=== PATIENT | female | born 2000 | race Asian ===

== ENCOUNTER 2025-02-26 19:28 | Inpatient (IN) | payer MEDICAID, OTHER, SELFPAY ==
--- OUTSIDE RECORDS SUMMARY | 2025-02-24 19:11 | XMS_ITS | Encounter Summary ---
Author Organization [facility] Address [address] [place] [id number] Care Team Providers Care Calendering Machine Operator Name Role Phone None, Pcp Primary Care Provider Markie Díaz NP Primary Care Provider [phone] Reason for Visit * Reason Comments Suicide Attempt * Auth/Cert (Routine) Specialty Diagnoses / Procedures Referred By Yodit wright Referred To Contact Diagnoses Tylenol toxicity, accidental or unintentional, initial encounter Procedures Inpatient Noemi Miller MD [address] [place] [phone] Phone: tel: fax: Referral ID Status Reason Start Date Expiration Date Visits Re quested Visits Authorized [id number] 1 1 Encounter Details Date Type Department Care Team (Latest Contact Info) Description 02/24/2025 7:11 PM EDT - 02/26/2025 5:07 PM EDT Hospital Encounter [facility] Emergency Department [address] [place] [phone] John Anderson MD [address] [place] [phone] Antony Colmenares MD [address] [place] [phone] Noemi Miller MD [address] [place] [phone] Shell Wilson MD [address] [place] [phone] Intentional acetaminophen overdose, initial encounter ([facility]) (Primary Dx); Depression with suicidal ideation Discharge Disposition: Psychiatric Hospital Social History Tobacco Use Types Packs/Day Years Used Date Smoking Tobacco: Never Smokeless Tobacco: Never Tobacco Cessation:Counseling Given: Not Answered Humiliation, Afraid, Rape, and Kick questionnair e Answer Date Recorded Within the last year, have y ou been afraid of your partner or ex-partner? No 02/26/2025 Emotionally Abused Not on file 02/26/2025 Physically Abused Not on file 02/26/2025 Sexually Abused Not on file 02/26/2025 Overall Financial Resource Strain (CARDIA) Answe r Date Recorded How hard is it for you to pa y for the very basics like food, housing, medical care, and heating? Not hard at all 02/26/2025 Hunger Vital Sign Answer Date Recorded Within the past 12 months, y ou worried that your food would run out before you got the money to buy more. Never true 02/27/20 25 Ran Out of Food in the Last Year Not on file 02/26/2025 PRAPARE - Transportation Answer Date Re corded In the past 12 months, has l ack of transportation kept you from medical appointments or from getting medications? No 02/02 In the past 12 months, has l ack of transportation kept you from meetings, work, or from getting things needed for daily living? No 02/26/2025 Housing Stability Vital Sign Answer Papo e Recorded In the last 12 months, was t here a time when you were not able to pay the mortgage or rent on time? No 02/26/2025 Number of Times Moved in the Last Year Not on fi le 02/26/2025 At any time in the [facility] were you homeless or living in a prison (including now)? No 02/26/2025 [facility] Utilities Answer Date Recorded In the past 12 months has th e electric, gas, oil, or water company threatened to shut off services in your home? No 02/26/2025 Food Insecurity Answer Date Recorded Within the past 12 months, y ou worried that your food would run out before you got the money to buy more. Never true 02/27/20 25 Ran Out of Food in the Last Year Not on file 02/26/2025 Intimate Partner Violence Answer Date R ecorded Emotionally Abused Not on file 02/26/2025 Within the last year, have y ou been afraid of your partner or ex-partner? No 02/26/2025 Physically Abused Not on file 02/26/2025 Sexually Abused Not on file 02/26/2025 Housing Stability Answer Date Recorded Unstable Housing in the Last Year Not on file 02/26/2025 In the last 12 months, was t here a time when you were not able to pay the mortgage or rent on time? No 02/26/2025 Number of Places Lived in the Last Year Not on f ile 02/26/2025 AUDIT C Answer Date Recorded How often have you had a dri nk containing alcohol, in the past year? 1 02/26/2025 How many standard drinks con taining alcohol have you had on a typical day when you are drinking, in the past year? 2 0 02/26/2025 How often have you had six o r more drinks on one occasion, in the past year? 0 02/26/2025 Comments Unknown Sex and Gender Information Value Date Recorded Sex Assigned at Female 02/24/2025 7:14 PM EDT Legal Sex Female 1:58 AM EST Gender Identity Female 02/24/2025 7:14 PM EDT Sexual Orientation Not on file documented as of this encounter Last Filed Vital Signs Vital Sign Reading Time Taken Comments Blood Pressure 103/62 02/26/2025 4:00 PM EDT Pulse 69 02/26/2025 4:00 PM EDT Temperature 36.8 C (98.2 F) 02/26/2025 8:00 AM EDT Respiratory Rate 15 02/26/2025 4:00 PM EDT Oxygen Saturation 100% 02/26/2025 4:00 PM EDT Inhaled Oxygen Concentration - - Weight 40.8 kg (90 lb) 02/24/2025 7:59 PM EDT Height 144.8 cm (4' 9 ) 02/24/2025 7:59 PM EDT Body Mass Index 19.48 02/24/2025 7:59 PM EDT documented in this encounter Functional Status * Are you deaf or do you have serious difficulty hearing? Answer Date of Assessment Author No 02/24/2025 7:18 PM EDT Page Evans * Are you blind or do you have serious difficulty seeing, even when wearing glasses? Answer Date of Assessment Author No 02/24/2025 7:18 PM EDT Page Evans * Do you have serious difficulty walking or climbing stairs? Answer Date of Assessment Author No 02/24/2025 7:18 PM EDT Page Evans * Do you have difficulty dressing or bathing? Answer Date of Assessment Author No 02/24/2025 7:18 PM EDT Page Evans * Because of a physical, mental, or emotional condition, do you have difficulty doing errands alone such as visiting the doctor? Answer Date of Assessment Author No 02/24/2025 7:18 PM EDT Page Evans documented as of this encounter Mental Status * Because of a physical, mental, or emotional condition, do you have serious difficulty concentrating, remembering, or making decisions? Answer Entry Date Author No 02/24/2025 7:18 PM EDT Page Evans documented in this encounter Discharge Summaries * Shell Wilson MD - 02/26/2025 2:51 PM EDT Date Of Admission: 02/24/2025 Inpatient Status Admit Date: 02/25/25 Date Of Discharge: Primary Care Physician: Markie Gaines NP Most Recent Code Status: Full Code Discussed with/per: Patient Incidental Findings: None Surgeries and Procedures this Admission: None Pending Tests on Discharge: None Principal Hospital Problem/Problem List: Discharge Diagnoses Diagnosis POA Tylenol toxicity, accidental or unintentional, initial encounter Yes Resolved Diagnoses No resolved problems to display. Reason for Admission: Suicide attempt History Of Present Illness: Per admitting physician,Pt is a 24-year-old female w/ hx of depression,presenting with report of suicide attempt by taking Tylenol. EMS noted it was an older large bottleunclear how many. Patient initially notes she is unsure how many but then said maybe around 10 about half an hour prior to arrival she does have associated nausea vomiting. She denies any other meds.She notes because she started to have GI upset and she was still awake she called her for help. He immediately called EMS. She denies any other ingestion. Vitals are stable. Labs were sent. Initial Tylenol level was just over 100. We will send a 4-hour level based on her estimated time ofingestion of around 645 however given her nausea vomiting I am not comfortable that it was only 10 tablets 1 hour prior to arrival. I discussed with [facility], they do recommend with a course of NAC. Updated patient and family, we are going to send a 4-hour level. Patient remains awake and alert on reevaluation. She will need to come to the hospital for course of NAC, cycling enzymes, will need to be on hold with a behavioral health evaluation Hospital Course: Patient was treated with N-acetylcysteine for Tylenol overdose during her inpatient stay. Labs normalized. Cleared from medical standpoint to discharge to inpatient psych under section 12 for suicide attempt. Accepting Facility: [facility] Address: [address] [place] [address] Accepting MD: Dr Mynor Leone Most Recent Vital Signs at time of Discharge: Temp: 98.2 ??F (36.8 ??C) BP: 93/53 Heart Rate: 63 Resp: 16 SpO2: 100 % O2 Device: None (Room air) Height: 144.8 cm (4' 9 ) Actual Weight: (!) 40.8 kg (90 lb) BMI (Calculated): 19.5 Physical Exam: General: No distress. Awake and Alert. CV: Regular Rate and Rhythm. No Murmurs auscultated. Lungs: Respirations unlaboured. Clear to auscultation bilaterally. Abdomen: Soft, Non-distended, Non-tender, Positive Bowel Sounds. Extremities: No Lower Extremity Edema. Warm and Well Perfused. Allergies:Patient has no known allergies. Prescriptions Prior to Admission[1] This SmartLink can only be used in admission encounters. Discharge Orders: Discharge Disposition: Transfer to Acute Hospital : [facility] Discharge plan was discussed with patient who verbalized understanding. Educational materials were provided. 35 minutes were spent in coordinating the discharge planning. Advanced Care Planning: Contacts on File Name HCP Status Relationship HCP Last Review Date Ramin Agustin Spouse Labs: Results from last 7 days Lab Units 02/26/25 0640 02/25/25 1538 02/24/25 1950 WBC K/uL 6.05 4.91 6.60 HEMOGLOBIN g/dL 12.2 11.8* 11.7* HEMATOCRIT % 37.0 36.3 35.5 PLATELETS K/uL 224 227 243 Results from last 7 days Lab Units 02/26/25 1339 02/26/25 0640 02/25/25 1538 SODIUM mmol/L 141 140 141 POTASSIUM mmol/L 4.3 3.8 3.8 CHLORIDE mmol/L 106 105 106 CO2 mmol/L 27 24 25 BUN mg/dL 10 8 5* CREATININE mg/dL 0.60 0.60 0.50 CALCIUM mg/dL 9.0 9.0 8.7 TOTAL PROTEIN g/dL 6.5 6.5 6.7 BILIRUBIN TOTAL mg/dL 0.7 0.6 0.6 ALK PHOS U/L 28* 28* 29* ALT U/L 10 9 8 AST U/L 17 15 14 GLUCOSE mg/dL 86 89 98 Results from last 7 days Lab Units 02/26/25 0640 INR 1.0 Microbiology: No results found for this visit on 02/24/25. No results found for: CORONAVIRUS [1] (Not in a hospital admission) documented in this encounter Discharge Instructions * Discharge Instructions* Shell Wilson MD - 02/26/2025 3:12 PM EDT You were treated for acetaminophen overdose with N-acetylcysteine during your inpatient stay. You are being transferred to inpatient psychiatric hospital for further management. documented in this encounter Medications at Time of Discharge famotidine (PEPCID) 20 MG tablet Take 1 tablet (20 mg total) by mouth 2 times a day as needed for heartburn. 01/09/2025 documented as of this encounter Progress Notes * Ronn Escobar - 02/26/2025 2:27 PM EDT Behavioral Health Crisis Consult- Contact Note Patient: Arlin Gomez : 2000 Admit Date: 02/24/2025 Date of Consult: 02/26/2025 Time of Consult: 2:27 PM Narrative: Patient: Arlin Gomez Accepting Facility: [facility] Address: [address] [place], [place] Accepting MD: Dr Mynor Leone Arrival Time: 5pm Nurse to Nurse Report: they are calling for N2N Other Labs or Needs: N/A HCP/Guardian (if applicable): N/A Reason for Section 12: suicide attempt Information Given To: via secure chat documented in this encounter H&P Notes * Noemi Miller MD - 02/25/2025 4:04 AM EDT HOSPITAL MEDICINE ADMISSION NOTE: Patient: Arlin Gomez Admit Date: 02/24/2025 Primary Care Physician: Pcp MD Lisa CHIEF COMPLAINT: suicide attempt HPI: Pt is a 24-year-old female w/ hx of depression, presenting with report of suicide attempt by takingTylenol. EMS noted it was an older large bottle unclear how many. Patient initially notes she is unsure how many but then said maybe around 10 about half an hour prior to arrival she does have associated nausea vomiting. She denies any other meds. She notes because she started to have GI upset and she was still awake she called her for help. He immediately called EMS. She denies any otheringestion. Vitals are stable. Labs were sent. Initial Tylenol level was just over 100. We will send a 4-hour level based on her estimated time ofingestion of around 645 however given her nausea vomiting I am not comfortable that it was only 10 tablets 1 hour prior to arrival. I discussed with [facility] poison control, they do recommend with a course of NAC. Updated patient and family, we are going to send a 4-hour level. Patient remains awake and alert on reevaluation. She will need to come to the hospital for course of NAC, cycling enzymes, will need to be on hold with a behavioral health evaluation ROS: Pertinent positives and negatives as noted in the HPI. All other systems were reviewed and arenegative. PAST MEDICAL HISTORY: Past Medical History[1]depression PAST SURGICAL HISTORY: Past Surgical History[2] SOCIAL HISTORY: Social History[3] FAMILY HISTORY: Family History[4] HOME MEDICATIONS: Prior to Admission medications Medication Sig Start Date End Date Taking? Authorizing Provider ferrous sulfate 325 (65 FE) MG tablet 325 MG PO DAILY 01/05/23 Historical Conversion Provider, MD penaat.vits,morgan,wyd-qkzp-abebp (KPN) Tab TAB 01/05/23 Historical Conversion Provider, PHYSICAL EXAM: Temp: [98.1 ??F (36.7 ??C)] 98.1 ??F (36.7 ??C) Heart Rate: [62-82] 62 Resp: [16-18] 17 BP: (110-117)/(78-83) 110/78 SpO2: [100 %] 100 % Gen: Well appearing, well groomed, NAD HENT: NCAT, mucus membranes moist, no oral lesions Eyes: Clear conjunctive, no periorbital edema CV: RRR, no m/r/g Resp: Lungs CTAB, good air movement Abd: Soft, non-tender, non-distended : No suprapubic or CVA tenderness Skin: No visible rashes Ext: No LE edema or erythema Neuro: CN 2-12 intact. Strength 5/5 throughout. Full sensation throughout. Psych: Normal tone and affect @[id number]@ Current Shift 02/24 1900 - 02/25 0659 In: 700 [IV Piggyback:700] Out: - DATA: I have reviewed the relevant labs, radiology studies, tracings, medical records, and they are notable for: Results in past 24 hours: Recent Results (from the past 24 hours) Comprehensive Metabolic Panel Collection Time: 02/24/25 7:50 PM Result Value Ref Range Sodium 141 135 - 146 mmol/L Potassium 4.3 3.4 - 5.2 mmol/L Chloride 106 98 - 110 mmol/L Total CO2/Bicarbonate 25 24 - 32 mmol/L Anion Gap 11 2 - 15 mmol/L Anion Gap 10 2 - 15 mmol/L BUN 9 7 - 24 mg/dL Creatinine, Blood 0.60 0.50 - 1.10 mg/dL Glucose, Blood 101 (H) 50 - 100 mg/dL Calcium 9.2 8.5 - 10.5 mg/dL Total Protein 7.2 6.2 - 8.2 g/dL Albumin, Blood 4.4 3.4 - 5.2 g/dL AST (SGOT) 18 11 - 40 U/L ALT (SGPT) 10 5 - 35 U/L Alkaline Phosphatase 31 (L) 35 - 150 U/L Total Bilirubin 0.6 0.2 - 1.2 mg/dL Estimated GFR(CKD-EPI) 127 mL/min/BSA PT-INR Collection Time: 02/24/25 7:50 PM Result Value Ref Range Prothrombin Time 14.0 12.1 - 14.6 s INR 1.0 <5.0 HCG, serum, qualitative Collection Time: 02/24/25 7:50 PM Result Value Ref Range HCG, Qualitative, Serum Negative Negative Toxicology Screen, Plasma Collection Time: 02/24/25 7:50 PM Result Value Ref Range Acetaminophen Result,Blood 105 (HH) 10 - 30 ug/mL Alcohol <10 <10 mg/dL Salicylate Level, Blood <1 <30 mg/dL CBC and Differential Collection Time: 02/24/25 7:50 PM Result Value Ref Range WBC 6.60 3.90 - 10.80 K/uL RBC 4.27 3.93 - 5.29 M/uL Hemoglobin 11.7 (L) 12.0 - 15.2 g/dL Hematocrit 35.5 34.1 - 44.9 % MCH 27.4 25.6 - 32.2 pg MCHC 33.0 32.0 - 36.0 g/dL MCV 83 81 - 96 fL RDW 12.1 11.5 - 14.0 % Platelet Count 243 154 - 369 K/uL Neutrophil 54.2 % Lymphocyte 35.5 % Monocyte 6.7 % Eosinophil 2.6 % Basophil 0.8 % Immature Granulocyte (Paris, Myelo, Promyelocyte) 0.2 % Absolute Neutrophil Count 3.59 1.68 - 7.99 K/uL Absolute Immature Granulocyte (Paris, Myelo, Promyelocyte) 0.01 0.00 - 0.09 K/uL Absolute Lymphocyte Count 2.34 0.66 - 4.75 K/uL Absolute Monocyte Count 0.44 0.16 - 1.40 K/uL Absolute Eosinophil Count 0.17 0.00 - 0.60 K/uL Absolute Basophil Count 0.05 0.00 - 0.32 K/uL Drug Screen, Urine Collection Time: 02/24/25 7:51 PM Result Value Ref Range Amphetamines Screen, Urine Negative Negative Barbiturates Screen, Urine Negative Negative Benzodiazepine Screen, Urine Negative Negative Buprenorphine Screen, Urine Negative Negative Cannabinoids Screen, Urine Negative Negative Cocaine Metabolite Screen, Urine Negative Negative Fentanyl Screen, Urine Negative Negative Methadone Screen, Urine Negative Negative Opiates Screen, Urine Negative Negative Oxycodone Screen, Urine Negative Negative Propoxyphene Screen, Urine Negative Negative Tricyclics Screen Negative Negative Comment ECG 12 lead Collection Time: 02/24/25 8:01 PM Result Value Ref Range Ventricular Heart Rate 76 BPM OH Interval 140 ms QRSD Interval 85 ms QT Interval 370 ms QTC Interval 416 ms P Mcgill 67 degrees R Mcgill 74 degrees T Wave Mcgill 28 degrees Acetaminophen Level Collection Time: 02/24/25 11:15 PM Result Value Ref Range Acetaminophen Result,Blood 61 (HH) 10 - 30 ug/mL Imaging results in past 7 days: No results found. Microbiology results: No results found for this visit on 02/24/25. ASSESSMENT AND PLAN: Complexity Bundle #Suicide attempt with Tylenol Overdose Initial level was 105 at 19:50 and more recently down to 61 at 23:25 ER had discussed case with Poison Control who is recommending that she come in for NAC. She is currently on the 3rd bag that will run on until 5 pm. We will be checking LFTs and INR at 2 pm. If negative, plan on dcing the NAC. If positive will need to continue. Negative drug screen INR is 1, Hcg neg, LFTs are WNL,at this time Tbili is negative Will need to be behavioral hold Will obtain psych consult in am #Depression Per the , has been depressed all week and ultimately attempted to end her life. Per her PCP, she has Uncontrolled anxiety and depression. Has been on sertraline in the past. Patietn reported that she filled the med, but never took it again. #DVT prophylaxis with SCD Full code Noemi Peterson MD Section of Hospital Medicine [facility] [1] No past medical history on file. [2] No past surgical history on file. [3] Social History Socioeconomic History Marital status: [4] No family history on file. documented in this encounter Consult Notes * Mar Domínguez, [facility] - 02/26/2025 10:18 AM EDT Addendum: This clinician called [facility]. Clt was picked up [address], [address] . According to report, there was a suicide note. I spoke to Adina's , Radha Agustin [phone]. reported police took suicide note and did not give it to the . I called the [place] [employer]. Officer reported the note was written in Italian, detailing why shehad a suicide attempt. Officer reported police could not translate so note was considered evidence.I asked if he could fax it and he said it was not available. 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 Behavioral Health Crisis Consult - Initial Assessment Patient: Arlin Gomez : 2000 Admit Date: 02/24/2025 Date of Consult: 02/26/2025 Time of Consult: 10:18 AM Consult Requested by: Shell Wilson MD Reason for Consult: Reason for Consult: Information from hospitalist: CHIEF COMPLAINT: suicide attempt HPI: Pt is a 24-year-old female w/ hx of depression, presenting with report of suicide attempt by taking Tylenol. EMS noted it was an older large bottle unclear how many. Patient initially notes she is unsure how many but then said maybe around 10 about half an hour prior to arrival she does have associated nausea vomiting. She denies any other meds. She notes because she started to have GI upset and she was still awake she called her for help. He immediately called EMS. She denies any other ingestion. Vitals are stable. Labs were sent. Initial Tylenol level was just over 100. Chief Complaint Patient presents with Suicide Attempt History of Present Illness: Patient is a 24 y.o. female with past medical and psychiatric history as listed who presented to the hospital on 02/24/2025 for Suicide Attempt. Behavioral Health is consulted for SA. The patient reported she has been experiencing depression with suicidal thoughts since the ofher daughter. Medical History: has no past medical history on file. has no past surgical history on file. Psychiatric History: History of psychiatric illness?: No History of suicidal ideation?: Yes History of non-suicidal self injury?: No History of interpersonal aggression?: No History of past KEVIN?: No Treatment History?: Yes Outpatient Treatment:: Outpatient Psychopharm Current Providers?: No Collateral Contact: Yes Home Medications: Prescriptions Prior to Admission[1] Current Medications: Scheduled Medications[2] Current PRN: PRN Medications[3] Allergies: Patient has no known allergies. Substance Use History Alcohol: Substance and Sexual Activity Alcohol Use None In the past 12 months,have you had 5 or more drinks(men)/4 or more drinks (women) containing alcohol in one day?: No Tobacco: reports that she has never smoked. She has never used smokeless tobacco. E-Cigarettes/Vaping Questions Responses Passive Exposure No E-Cigarette/Vaping Substances Questions Responses Nicotine No THC No CBD No Flavoring No Other: has no history on file for drug use. Addiction/Substance Use Substances last used: Never used Prescription Medications: In the past 12 months,have you used any prescription medications just for the feeling, more than prescribed or that were no prescribed for you?: No Substances: In the past 12 months, have you used any drugs?: No Medical and Psychiatric Consequences: Psychosocial Consequences: Social History: ( See chart) Socioeconomic History Marital status: Number of children: 1 Years of education: 12 Social History Narrative Adina resides with her and 2 year old daughter, Snehal. Adina works at a [employer] with her . Her family is in [place] . She came to the [place] 2[place]5 years ago. She reported she has no family here with the exception of her . Employment Status: Data Unavailable Type of Residence: Private residence Children?: Yes Number of Children: 1 Children's Age(s): 2 years old Education: High school History: History [place] status: No Personal History: History of trauma/significant life events/MICHELE?: Yes (leaving my family in [place]) reports being sexually active. Family History: Family History[4] Family history of psychiatric illness?: No Family history of KEVIN?: No Family history of suicidal ideation, attempt or completed suicide?: No Physical Exam: Patient Vitals for the past 24 hrs: BP Temp Temp src Pulse Resp SpO2 02/26/25 0800 93/61 98.2 ??F (36.8 ??C) Oral 53 16 100 % 02/26/25 0355 101/64 -- -- (!) 50 16 100 % 02/26/25 0008 99/67 -- -- 55 17 100 % 02/25/252008 99/66 -- -- 65 16 100 % 02/25/25 1542 101/82 -- -- 70 18 100 % 02/25/25 1338 101/62 -- -- 64 17 100 % 02/25/25 1044 112/69 -- -- 71 18 100 % Mental Status Exam: MSEClt dressed in hospital attire, good eye contact, slow speech with paucity, mood was depressed with flat affect, thought process was not goal oriented, expressing hopelessness, Clt acknowledged Delfina reported SI since of her daughter, Denied AH and VH, poor sleep , some nights sleepless, some 2-3 hours a night, appetite is poor with a weight loss of 9 pounds over two month period, low motivation. Labs, Imaging & Other Studies: Laboratory: Recent lab results have been reviewed and are notable for ( See chart) Results for orders placed or performed during the hospital encounter of 02/24/25 (from the past 24 hours) Acetaminophen Level Result Value Ref Range Acetaminophen Result,Blood <5 (L) 10 - 30 ug/mL CBC Result Value Ref Range WBC 4.91 3.90 - 10.80 K/uL RBC 4.35 3.93 - 5.29 M/uL Hemoglobin 11.8 (L) 12.0 - 15.2 g/dL Hematocrit 36.3 34.1 - 44.9 % MCH 27.1 25.6 - 32.2 pg MCHC 32.5 32.0 - 36.0 g/dL MCV 83 81 - 96 fL RDW 11.8 11.5 - 14.0 % Platelet Count 227 154 - 369 K/uL Comprehensive Metabolic Panel Result Value Ref Range Sodium 141 135 - 146 mmol/L Potassium 3.8 3.4 - 5.2 mmol/L Chloride 106 98 - 110 mmol/L Total CO2/Bicarbonate 25 24 - 32 mmol/L Anion Gap 10 2 - 15 mmol/L Anion Gap 10 2 - 15 mmol/L BUN 5 (L) 7 - 24 mg/dL Creatinine, Blood 0.50 0.50 - 1.10 mg/dL Glucose, Blood 98 50 - 100 mg/dL Calcium 8.7 8.5 - 10.5 mg/dL Total Protein 6.7 6.2 - 8.2 g/dL Albumin, Blood 4.2 3.4 - 5.2 g/dL AST (SGOT) 14 11 - 40 U/L ALT (SGPT) 8 5 - 35 U/L Alkaline Phosphatase 29 (L) 35 - 150 U/L Total Bilirubin 0.6 0.2 - 1.2 mg/dL Estimated GFR(CKD-EPI) 133 mL/min/BSA ProTime-INR Result Value Ref Range Prothrombin Time 15.1 (H) 12.1 - 14.6 s INR 1.1 <5.0 Gold Top Result Value Ref Range Gold Top Tube Received Comprehensive Metabolic Panel Result Value Ref Range Sodium 140 135 - 146 mmol/L Potassium 3.8 3.4 - 5.2 mmol/L Chloride 105 98 - 110 mmol/L Total CO2/Bicarbonate 24 24 - 32 mmol/L Anion Gap 11 2 - 15 mmol/L Anion Gap 11 2 - 15 mmol/L BUN 8 7 - 24 mg/dL Creatinine, Blood 0.60 0.50 - 1.10 mg/dL Glucose, Blood 89 50 - 100 mg/dL Calcium 9.0 8.5 - 10.5 mg/dL Total Protein 6.5 6.2 - 8.2 g/dL Albumin, Blood 4.1 3.4 - 5.2 g/dL AST (SGOT) 15 11 - 40 U/L ALT (SGPT) 9 5 - 35 U/L Alkaline Phosphatase 28 (L) 35 - 150 U/L Total Bilirubin 0.6 0.2 - 1.2 mg/dL Estimated GFR(CKD-EPI) 127 mL/min/BSA Prothrombin Time - INR Result Value Ref Range Prothrombin Time 13.8 12.1 - 14.6 s INR 1.0 <5.0 CBC and Differential Result Value Ref Range WBC 6.05 3.90 - 10.80 K/uL RBC 4.47 3.93 - 5.29 M/uL Hemoglobin 12.2 12.0 - 15.2 g/dL Hematocrit 37.0 34.1 - 44.9 % MCH 27.3 25.6 - 32.2 pg MCHC 33.0 32.0 - 36.0 g/dL MCV 83 81 - 96 fL RDW 12.1 11.5 - 14.0 % Platelet Count 224 154 - 369 K/uL Neutrophil 48.9 % Lymphocyte 35.0 % Monocyte 6.1 % Eosinophil 9.1 % Basophil 0.7 % Immature Granulocyte (Paris, Myelo, Promyelocyte) 0.2 % Absolute Neutrophil Count 2.96 1.68 - 7.99 K/uL Absolute Immature Granulocyte (Paris, Myelo, Promyelocyte) 0.01 0.00 - 0.09 K/uL Absolute Lymphocyte Count 2.12 0.66 - 4.75 K/uL Absolute Monocyte Count 0.37 0.16 - 1.40 K/uL Absolute Eosinophil Count 0.55 0.00 - 0.60 K/uL Absolute Basophil Count 0.04 0.00 - 0.32 K/uL EKG: No studies were reviewed. C-SSRS Screener and SAFE-T: [place] Suicide Severity Rating Scale (C-SSRS) Screener 1) In the past month, have you wished you were or wished you could go to sleep and not wake up?: Yes If yes, describe (Past 1 Month): Ingested large unknown amount of tylenol 2) In the past month, have you actually had any thoughts of killing yourself?: Yes If yes, describe (Past 1 Month): Ingested large unknown amount of tylenol 3) Have you been thinking about how you might do this? (Past 1 Month): Yes If yes, describe (Past 1 Month): Ingested large unknown amount of tylenol 4) Have you had these thoughts and had some intention of acting on them or do you have some intention of acting on them? (Past 1 Month): Yes If yes, describe (Past 1 Month): Ingested large unknown amount of tylenol 5) Have you started to work out or worked out the details of how to kill yourself? Did you intend to carry out this plan? (Past 1 Month): Yes If yes, describe (Past 1 Month): Ingested large unknown amount of tylenol 6a.) Have you ever done anything, started to do anything, or prepared to do anything to end your life?: Yes If yes, describe: Ingested large unknown amount of tylenol 6b.) If 'Yes', was it within the past 3 months?: Yes C-SSRS Screener Risk Level: High History of Psychiatric Diagnosis:: Mood disorder Presenting Symptoms: Hopelessness or despair, Insomnia, Impulsivity Precipitants/ Stressors/ Interpersonal: Homelessness, Inadequate social supports, Social isolation Access to lethal methods: Ask specifically about presence or absence of a firearm in the home or ease of accessing: No Step 2: Identify Protective Factors (Protective factors may not counteract significant acute suicide risk factors) External Protective Factors: Responsibility to children, parents, pets Step 3: Specific questioning about Thoughts, Plans, and Suicidal Intent - (see Step 1 for Ideation Severity and Behavior) In the past 1 month, how many times have you had these thoughts?: Many times each day In the past 1 month, when you have the thoughts, how long do they last?: More than 8 hours/persistent or continuous In the past 1 month, could/can you stop thinking about killing yourself or wanting to if you want to?: Unable to control thoughts In the past 1 month, are there things - anyone or anything (e.g., family, scientologist, pain of ) - that stopped you from wanting to or acting on thoughts of suicide?: Deterrents definitely did not stop you In the past 1 month, what reasons did you have for thinking about wanting to or killing yourself? Was it to end the pain or stop the way you were feeling, or was it to get attention, revenge, or reaction from others? Or both?: Completely to end or stop the pain (you couldn't go on living with the pain you were feeling) Suicidal Ideation Intensity Total Score: 25 Management of Suicide Risk: Because the patient does not have active suicidal ideation, plan or intent, the patient will be recommended ILOC for recent SA via Tylenol. Assessment: Patient is a 24 y.o. female with past medical and psychiatric history as above now presents after SA via tylenol pills. This clinician met with Clt along with interrupter services ( Magy number [phone]). During evaluation Clt reported significant depression with suicidal thoughts since the of her two year old daughter ( It should be noted that since the symptoms have been longer than 12 months, Clt has Major Depressive D/O- severe) Clt reported she engaged in therapy /psychiatry with Dr.Chau Gaines through the [facility] in [place]. [place] reported she was prescribed medication but stopped it after a couple of days. Clt reported depression and SI have been persistent. 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 Adina reported no significant substance abuse ( 3-4 beers monthly, no other substances). Adina has no HX of [facility] level of care. She reported trauma associated with leaving her family in [place] but denied any HX of physical or sexual abuse. Adina has no legal HX. She reports poor sleep and some nights nosleep . Adina also reported a weight loss of 9 pounds over 2 months. During interview Adina reported , When my daughter was born I was overwhelmed and suicidal. I did see Markie Gaines and I was prescribed medication which helped but I stopped the medication after I few days because I thought I was getting better but depression returned. 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 She reported she misses her mother, father and brother but feels she can not visit for fear that she will not be allowed back in the country.Adina reported her is not in favor of Clt visiting her family. Adina reported yesterday she felt overwhelmed, having bad thoughts thinking she will never be able to see her family, and OD on Tylenol pills. Adina reported, After I took the pills, I was not but I was experiencing head ache and nausea so I told my . Adina was transported to ED by EMS. It should be noted Adina reported she has been struggling with SI x past two years. She did receive TX briefly and reported she stopped her medication after a few days. Based on this report this clinician will file a 51 A. Based on the above, adina would benefit from Inpatient level of care. Recommendations: [place] Intervention and Stabilization Services Requested: ILOC Disposition Recommendation: Inpatient Level of Care Patient meets criteria for opioid use disorder (OUD): No Behavioral Health Diagnosis: F32.2 Major Depressive Disorder Duration: Time Spent (min): 120 Discussed with Heavy Equipment Diesel Mechanic: No Discussed with Medical Team: Yes . Dr. Del Rosario Signed by: MIKAL Ziegler [1] (Not in a hospital admission) [2] famotidine, 20 mg, Oral, BID sodium chloride, 3 mL, Intravenous, Q12H KIM [3] Insert and Maintain Peripheral IV AND sodium chloride AND sodium chloride [4] No family history on file. documented in this encounter ED Notes * Linnette Clifford RN - 02/25/2025 5:36 PM EDT Patient has been pleasant and cooperative. at bedside most of day. Service Car Driver Ipad utilized for communication but does speak and understand Wallisian. She ambulates to bathroom w/steady gait. She does now have a diet order in place and enjoyed having dinner. INR was drawn * Linnette Clifford RN - 02/25/2025 4:37 PM EDT Poison control called and were updated w/LFT's and Tylenol level which they state meet their requirement to be cleared but they do need a new INR per protocol. I have placed the order and they will call back in about 90 minutes for result * Lianna Valderrama RN - 02/25/2025 3:00 AM EDT Pt is awake at this time and asking for something to eat. Pt was given agustina crackers and cup of ice water. * Lianna Valderrama RN - 02/24/2025 11:58 PM EDT RN assumed care of pt sleeping in bed with NAD noted and at bedside. Lab called to report pt's acetaminophen level is 61 at this time and will notify provider. Pt has second dose of Acetadote infusing. Pt remains under continuous observation for safety. Poison control called for pt's update on status. * Suellen Cristobal RN - 02/24/2025 7:44 PM EDT PT BIBA from home after ingesting unknown amount of tylenol in suicide attempt. Patient lithuanian speaking only. * Maria Dolores Hyatt RN - 02/24/2025 7:41 PM EDT Pt comes to ED after ingestion of unknown amount of tylenol. Per the pts pt stated to him that she took ten or more 500mg tabs of tylenol. Per the pt has been feeling depressed for the past week. Pt reports that she took 10 or more tylenol to this RN because she was feeling sad, this happened around 1830 per pt. Pt remains on continous pulse ox and cardiac monitoring. A+o4. Continuous monitor for safety maintained. 1:1 safety analyst at bedside. at bedside. Pt placed inpaper scrubs. All belongings away from pt. Kat Avitia-[id number] Pts earings, two bracelets, and necklace given to . * John Anderson MD - 02/24/2025 7:11 PM EDT Date of service: 02/24/2025 EMERGENCY DEPARTMENT ENCOUNTER [facility] EMERGENCY DEPARTMENT CHIEF COMPLAINT Suicide Attempt HPI Discussion with Independent Historian: EMS family Arlin Gomez is a 24 y.o. 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 Positive NV. There was a suicide note. Phone interp utilized PAST MEDICAL HISTORY Past Medical History[1] None SOCIAL HISTORY Social History[2] FAMILY HISTORY Family History[3] No relevant SURGICAL HISTORY Past Surgical History[4] None CURRENT MEDICATIONS Patient Medication List Previous Medications FERROUS SULFATE 325 (65 FE) MG TABLET PRENAT.VITS,MORGAN,VBF-[id number] (KPN) TAB ALLERGIES Allergies[5] No known drug allergies PHYSICAL EXAM Vitals: 02/24/25 2249 BP: 115/83 Pulse: 75 Resp: 16 Temp: SpO2: 100% Gnrl: NAD HEENT:AT/NC, EOMI, PERRLA, OPC NECK:supple RESP:CTA bilateral, no distress CV:RRR ABD:soft Nontender EXTR:normal pulses, no cords/calf tenderness NEURO:A&Ox3, CN2-12 intact, str/sense intact PSYCH: Tearful EKG Rhythm Strip: Normal sinus rhythm at 76 EKG: Normal sinus rhythm, normal QRS intervals, nonspecific ST-T changes QTc 400 QRS 85 Independently interpreted RADIOLOGY Independently interpreted LABS: Labs COMPREHENSIVE METABOLIC PANEL - Abnormal Result Value Ref Range Sodium 141 135 - 146 mmol/L Potassium 4.3 3.4 - 5.2 mmol/L Comment: Samples tested in serum may exhibit a higher potassium value than those tested on plasma. Our current range is based on plasma testing. Chloride 106 98 - 110 mmol/L Total CO2/Bicarbonate 25 24 - 32 mmol/L Anion Gap 11 2 - 15 mmol/L Anion Gap 10 2 - 15 mmol/L BUN 9 7 - 24 mg/dL Creatinine, Blood 0.60 0.50 - 1.10 mg/dL Glucose, Blood 101 (*) 50 - 100 mg/dL Calcium 9.2 8.5 - 10.5 mg/dL Total Protein 7.2 6.2 - 8.2 g/dL Albumin, Blood 4.4 3.4 - 5.2 g/dL AST (SGOT) 18 11 - 40 U/L ALT (SGPT) 10 5 - 35 U/L Alkaline Phosphatase 31 (*) 35 - 150 U/L Total Bilirubin 0.6 0.2 - 1.2 mg/dL Estimated GFR(CKD-EPI) 127 mL/min/BSA TOXICOLOGY SCREEN, BLOOD - Abnormal Acetaminophen Result,Blood 105 (*) 10 - 30 ug/mL Alcohol <10 <10 mg/dL Salicylate Level, Blood <1 <30 mg/dL CBC AND DIFFERENTIAL - Abnormal WBC 6.60 3.90 - 10.80 K/uL RBC 4.27 3.93 - 5.29 M/uL Hemoglobin 11.7 (*) 12.0 - 15.2 g/dL Hematocrit 35.5 34.1 - 44.9 % MCH 27.4 25.6 - 32.2 pg MCHC 33.0 32.0 - 36.0 g/dL MCV 83 81 - 96 fL RDW 12.1 11.5 - 14.0 % Platelet Count 243 154 - 369 K/uL Neutrophil 54.2 % Lymphocyte 35.5 % Monocyte 6.7 % Eosinophil 2.6 % Basophil 0.8 % Immature Granulocyte (Paris, Myelo, Promyelocyte) 0.2 % Absolute Neutrophil Count 3.59 1.68 - 7.99 K/uL Absolute Immature Granulocyte ([place], Myelo, Promyelocyte) 0.01 0.00 - 0.09 K/uL Absolute Lymphocyte Count 2.34 0.66 - 4.75 K/uL Absolute Monocyte Count 0.44 0.16 - 1.40 K/uL Absolute Eosinophil Count 0.17 0.00 - 0.60 K/uL Absolute Basophil Count 0.05 0.00 - 0.32 K/uL PROTIME-INR - Normal Prothrombin Time 14.0 12.1 - 14.6 s INR 1.0 <5.0 HCG, SERUM, QUALITATIVE - Normal HCG, Qualitative, Serum Negative Negative DRUG SCREEN, URINE Amphetamines Screen, Urine Negative Negative Barbiturates Screen, Urine Negative Negative Benzodiazepine Screen, Urine Negative Negative Buprenorphine Screen, Urine Negative Negative Cannabinoids Screen, Urine Negative Negative Cocaine Metabolite Screen, Urine Negative Negative Fentanyl Screen, Urine Negative Negative Methadone Screen, Urine Negative Negative Opiates Screen, Urine Negative Negative Oxycodone Screen, Urine Negative Negative Propoxyphene Screen, Urine Negative Negative Tricyclics Screen Negative Negative Comment Comment: The cut-off concentration for a positive result for each drug is listed below: Drug Cut-off value Amphetamines >1000 ng/mL Barbiturates >200 ng/mL Benzodiazepines >300 ng/mL Buprenorphine >5 ng/mL Cannabinoids >50 ng/mL Cocaine >300 ng/mL Fentanyl >5.0 ng/mL Opiates >300 ng/mL Methadone >300 ng/mL Oxycodone >100 ng/mL This is only a screening; positive results are not confirmed by a second method; The results must be used for medical purposes only. ACETAMINOPHEN LEVEL CBC AND DIFFERENTIAL Narrative: The following orders were created for panel order CBC and Differential. Procedure Abnormality Status --------- ------ CBC and Differential[[id number]] Abnormal Final result Please view results for these tests on the individual orders. ED COURSE & MEDICAL DECISION MAKING DIFFERENTIAL: Overdose, toxic overdose All nursing and triage notes reviewed. All labs ordered reviewed MDM: 24-year-old female, presenting with report of suicide attempt by taking Tylenol. EMS noted it was an older large bottle unclear how many. Patient initially notes she is unsure how many but then said maybe around 10 about half an hour prior to arrival she does have associated nausea vomiting. She denies any other meds. She notes because she started to have GI upset and she was still awake she called her for help. He immediately called EMS. She denies any other ingestion. Vitals are stable. Labs were sent. Initial Tylenol level was just over 100. We will send a 4-hour level based on her estimated time ofingestion of around 645 however given her nausea vomiting I am not comfortable that it was only 10 tablets 1 hour prior to arrival. I discussed with [facility] poison control, they do recommend with a course of NAC. Updated patient and family, we are going to send a 4-hour level. Patient remains awake and alert on reevaluation. She will need to come to the hospital for course of NAC, cycling enzymes, will need to be on hold with a behavioral health evaluation Consideration of Admission/Observation: Escalation of care: Admission given need for course of N-acetylcysteine Discussion with Other Healthcare Provider: Internist Medical Doctor Md: Patient's presentation and condition management discussed mass poison control Independent Interpretation of Studies: EKG: See interpretation included in this note. Rhythm Strip: My interpretation is: Normal sinus rhythm and intervals Review of External (Non-ED) Records: Medical record: No previous admission for SI Prescription medication considered but not given after discussion with patient/family: Prescriptionconsidered: Given nausea vomiting would not give charcoal Critical Care time (35 min): Critical care was necessary to treat or prevent imminent or life-threatening deterioration of the following conditions: . Tylenol overdose, SI attempt... Critical care was time spend by me on the following activities: blood draw for specimens, development of treatment plan with patient or surrogate, discussions with nurse, documenting the case, examination of patient, evaluation of patient's response to treatment, initial history and physical exam, medical decision making, obtaining history from patient or surrogate, interpretation of chest x-ray,ordering and performing treatments and interventions, ordering and review of laboratory studies, review of old charts, re-evaluation of patient's condition, review of labs and pulse oximetry DISPOSITION:admit Clinical Impression Intentional acetaminophen overdose, initial encounter ([facility]) (Primary) Depression with suicidal ideation John nAderson MD 02/24/252338 [1] No past medical history on file. [2] Social History Socioeconomic History Marital status: [3] No family history on file. [4] No past surgical history on file. [5] No Known Allergies John Anderson MD 02/24/252338 documented in this encounter Miscellaneous Notes * Significant Event - Shell Wilson MD - 02/25/2025 6:03 PM EDT Patient seen and examined the ER.Tylenol level trended down, INR WNL. LFTs WNL. Denies nausea vomiting or abdominal pain Resting comfortably Intentional overdose-Tylenol toxicity S/p N-acetylcysteine Trend liver enzymes Trend INR daily Tylenol level daily Discussed with poison control, given normal labs and asymptomatic status, Recommending stopping N-acetylcysteine after the last bag today. Will reach out to [facility] crisis team In a.m. documented in this encounter Plan of Treatment Pending Results Name Type Priority Associated Diagnoses Date /Time ECG 12 lead ECG STAT 02/24/2025 8: 01 PM EDT documented as of this encounter Procedures Procedure Name Priority Date/Time Associated Diagnosis Comments PROTIME-INR STAT 02/26/2025 4:03 PM EDT COMPREHENSIVE METABOLIC PANEL STAT 02/26/2025 1:39 PM EDT CBC AND DIFFERENTIAL Timed 02/26/2025 6:40 AM EDT PROTIME-INR Timed 02/26/2025 6:40 AM EDT CBC AND DIFFERENTIAL Timed 02/26/2025 6:40 AM EDT COMPREHENSIVE METABOLIC PANEL Timed 02/26/2025 6:40 AM EDT LABELS FOR EXTRA TUBES Routine 02/25/2025 4:48 PM EDT YELLOW TOP Routine 02/25/2025 4:48 PM EDT PROTIME-INR STAT 02/25/2025 4:48 PM EDT CBC Routine 02/25/2025 3:38 PM EDT COMPREHENSIVE METABOLIC PANEL Routine 02/25/2025 3:38 PM EDT ACETAMINOPHEN LEVEL STAT 02/25/2025 10:28 AM EDT PROTIME-INR STAT 02/25/2025 9:05 AM EDT ACETAMINOPHEN LEVEL STAT 02/24/2025 11:15 PM EDT ECG 12-LEAD STAT 02/24/2025 8:01 PM EDT Procedure Note - 02/24/2025 8:01 PM EDTThis note is in progress. SINUS RHYTHM NONSPECIFIC T-WAVE ABNORMALITY BORDERLINE ECG DRUG SCREEN, URINE STAT 02/24/2025 7: 51 PM EDT CBC AND DIFFERENTIAL STAT 02/24/2025 7:50 PM EDT TOXICOLOGY SCREEN, BLOOD STAT 02/24/2025 7:50 PM EDT PROTIME-INR STAT 02/24/2025 7:50 PM EDT CBC AND DIFFERENTIAL STAT 02/24/2025 7:50 PM EDT HCG, SERUM, QUALITATIVE STAT 02/24/2025 7:50 PM EDT COMPREHENSIVE METABOLIC PANEL STAT 02/24/2025 7:50 PM EDT documented in this encounter Results * ProTime-INR (02/26/2025 4:03 PM EDT) Prothrombin Time 13.8 12.1 - 14.6 s 02/26/2025 4:19 PM EDT [facility] INR 1.0 <5.0 02/26/2025 4:19 PM EDT [facility] Blood PERIPHERAL BLOOD SPECIMEN / Unknown Venipuncture / Unknown 02/26/2025 4:03 PM EDT 02/26/2025 4:05 PM EDT us Shell Wilson MD LAB BLOOD ORDERABLES Final Re sult [facility] [address] [place] [address], * (ABNORMAL) Comprehensive Metabolic Panel (02/26/2025 1:39 PM EDT) Sodium 141 135 - 146 mmol/L 02/26/2025 2:04 PM EDT [facility] Potassium 4.3 3.4 - 5.2 mmol/L 02/26/2025 2:04 PM T [facility] Comment:Samples tested in se rum may exhibit a higher potassium value than those tested on plasma. Our current range is based on plasma testing. Chloride 106 98 - 110 mmol/L 02/26/2025 2:04 PM EDT [facility] Total CO2/Bicarbonate 27 24 - 32 mmol/L 02/26/2025 2:04 PM EDT [facility] Anion Gap 8 2 - 15 mmol/L 02/26/2025 2:04 PM EDT [facility] Anion Gap 8 2 - 15 mmol/L 02/26/2025 2:04 PM [facility] BUN 10 7 - 24 mg/dL 02/26/2025 2:04 PM [facility] Creatinine, Blood 0.60 0.50 - 1.10 mg/dL 02/26/2025 2:04 PM [facility] Glucose, Blood 86 50 - 100 mg/dL 02/26/2025 2:04 PM [facility] Calcium 9.0 8.5 - 10.5 mg/dL 02/26/2025 2:04 PM [facility] Total Protein 6.5 6.2 - 8.2 g/dL 02/26/2025 2:04 PM [facility] Albumin, Blood 4.0 3.4 - 5.2 g/dL 02/26/2025 2:04 PM [facility] AST (SGOT) 17 11 - 40 U/L 02/26/2025 2:04 PM [facility] ALT (SGPT) 10 5 - 35 U/L 02/26/2025 2:04 PM [facility] Alkaline Phosphatase 28(L) 35 - 150 U/L 02/26/2025 2:04 PM [facility] Total Bilirubin 0.7 0.2 - 1.2 mg/dL 02/26/2025 2:04 PM [facility] Estimated GFR(CKD-EPI) 127 mL/min/BSA 02/26/2025 2:04 PM [facility] Blood PERIPHERAL BLOOD SPECIMEN / Unknown Venipuncture / Unknown 02/26/2025 1:39 PM EDT 02/26/2025 1:41 PM EDT us Noemi Miller MD LAB BLOOD ORDERABLES Final Result [facility] [address] [place] [address], [place] * CBC and Differential (02/26/2025 6:40 AM EDT) WBC 6.05 3.90 - 10.80 K/uL 02/26/2025 7:07 AM [facility] RBC 4.47 3.93 - 5.29 M/uL 02/26/2025 7:07 AM [facility] Hemoglobin 12.2 12.0 - 15.2 g/dL 02/26/2025 7:07 AM [facility] Hematocrit 37.0 34.1 - 44.9 % 02/26/2025 7:07 AM [facility] MCH 27.3 25.6 - 32.2 pg 02/26/2025 7:07 AM [facility] MCHC 33.0 32.0 - 36.0 g/dL 02/26/2025 7:07 AM [facility] MCV 83 81 - 96 fL 02/26/2025 7:07 AM [facility] RDW 12.1 11.5 - 14.0 % 02/26/2025 7:07 AM [facility] Platelet Count 224 154 - 369 K/uL 02/26/2025 7:07 AM [facility] Neutrophil 48.9 % 02/26/2025 7:07 AM [facility] Lymphocyte 35.0 % 02/26/2025 7:07 AM [facility] Monocyte 6.1 % 02/26/2025 7:07 AM [facility] Eosinophil 9.1 % 02/26/2025 7:07 AM [facility] Basophil 0.7 % 02/26/2025 7:07 AM [facility] Immature Granulocyte ([place], Myelo, Promyelocyte) 0.2 % 02/26/2025 7:07 AM [facility] Absolute Neutrophil Count 2.96 1.68 - 7.99 K/uL 02/26/2025 7:07 AM [facility] Absolute Immature Granulocyte ([place], Myelo, Promyelocyte) 0.01 0.00 - 0.09 K/uL 02/26/2025 7:07 AM [facility] Absolute Lymphocyte Count 2.12 0.66 - 4.75 K/uL 02/26/2025 7:07 AM [facility] Absolute Monocyte Count 0.37 0.16 - 1.40 K/uL 02/26/2025 7:07 AM EDT [facility] Absolute Eosinophil Count 0.55 0.00 - 0.60 K/uL 02/26/2025 7:07 AM EDT [facility] Absolute Basophil Count 0.04 0.00 - 0.32 K/uL 02/26/2025 7:07 AM EDT [facility] Blood PERIPHERAL BLOOD SPECIMEN / Unknown Venipuncture / Unknown 02/26/2025 6:40 AM EDT 02/26/2025 7:01 AM EDT Shell Wilson MD LAB BLOOD ORDERABLES Final Re sult Performing Organization Address [facility] de Phone Number [facility] [address] [place] [place] [phone], [place] * Prothrombin Time - INR (02/26/2025 6:40 AM EDT) Prothrombin Time 13.8 12.1 - 14.6 s 02/26/2025 7:15 AM EDT [facility] INR 1.0 <5.0 02/26/2025 7:15 AM T [facility] Blood PERIPHERAL BLOOD SPECIMEN / Unknown Venipuncture / Unknown 02/26/2025 6:40 AM EDT 02/26/2025 7:01 AM EDT Shell Wilson MD LAB BLOOD ORDERABLES Final Re sult Performing Organization Address [facility] de Phone Number [facility] [address] [place] [phone], [place] * (ABNORMAL) Comprehensive Metabolic Panel (02/26/2025 6:40 AM EDT) Sodium 140 135 - 146 mmol/L 02/26/2025 7:32 AM EDT [facility] Potassium 3.8 3.4 - 5.2 mmol/L 02/26/2025 7:32 AM EDT [facility] Comment:Samples tested in se rum may exhibit a higher potassium value than those tested on plasma. Our current range is based on plasma testing. Chloride 105 98 - 110 mmol/L 02/26/2025 7:32 AM [facility] Total CO2/Bicarbonate 24 24 - 32 mmol/L 02/26/2025 7:32 AM [facility] Anion Gap 11 2 - 15 mmol/L 02/26/2025 7:32 AM [facility] Anion Gap 11 2 - 15 mmol/L 02/26/2025 7:32 AM [facility] BUN 8 7 - 24 mg/dL 02/26/2025 7:32 AM [facility] Creatinine, Blood 0.60 0.50 - 1.10 mg/dL 02/26/2025 7:32 AM [facility] Glucose, Blood 89 50 - 100 mg/dL 02/26/2025 7:32 AM [facility] Calcium 9.0 8.5 - 10.5 mg/dL 02/26/2025 7:32 AM [facility] Total Protein 6.5 6.2 - 8.2 g/dL 02/26/2025 7:32 AM [facility] Albumin, Blood 4.1 3.4 - 5.2 g/dL 02/26/2025 7:32 AM [facility] AST (SGOT) 15 11 - 40 U/L 02/26/2025 7:32 AM [facility] ALT (SGPT) 9 5 - 35 U/L 02/26/2025 7:32 AM [facility] Alkaline Phosphatase 28(L) 35 - 150 U/L 02/26/2025 7:32 AM [facility] Total Bilirubin 0.6 0.2 - 1.2 mg/dL 02/26/2025 7:32 AM [facility] Estimated GFR(CKD-EPI) 127 mL/min/BSA 02/26/2025 7:32 AM [facility] Blood PERIPHERAL BLOOD SPECIMEN / Unknown Venipuncture / Unknown 02/26/2025 6:40 AM EDT 02/26/2025 7:01 AM EDT us Shell Wilson MD LAB BLOOD ORDERABLES Final Re sult Performing Organization Address [facility]/ZIP Co de Phone Number [facility] [address] [place] [address], [place] * Gold Top (02/25/2025 4:48 PM EDT) Gold Top Tube Received 02/25/2025 6:01 PM EDT [facility] Blood PERIPHERAL BLOOD SPECIMEN / Unknown Venipuncture / Unknown 02/25/2025 4:48 PM EDT 02/25/2025 4:52 PM EDT Shell Wilson MD LAB BLOOD ORDERABLES Final Re sult Performing Organization Address [facility] de Phone Number [facility] [address] [place] [phone], [place] * (ABNORMAL) ProTime-INR (02/25/2025 4:48 PM EDT) [facility] Prothrombin Time 15.1(H) 12.1 - 14.6 s 02/25/2025 5:08 PM EDT [facility] INR 1.1 <5.0 02/25/2025 5:08 PM EDT [facility] Blood PERIPHERAL BLOOD SPECIMEN / Unknown Venipuncture / Unknown 02/25/2025 4:48 PM EDT 02/25/2025 4:51 PM EDT Shell Wilson MD LAB BLOOD ORDERABLES Final Re sult Performing Organization Address [facility] Co de Phone Number [facility] [address] [place] [phone], [place] * (ABNORMAL) Comprehensive Metabolic Panel (02/25/2025 3:38 PM EDT) [facility] Sodium 141 135 - 146 mmol/L 02/25/2025 4:29 PM EDT [facility] Potassium 3.8 3.4 - 5.2 mmol/L 02/25/2025 4:29 PM EDT [facility] Comment:Samples tested in se rum may exhibit a higher potassium value than those tested on plasma. Our current range is based on plasma testing. Chloride 106 98 - 110 mmol/L 02/25/2025 4:29 PM [facility] Total CO2/Bicarbonate 25 24 - 32 mmol/L 02/25/2025 4:29 PM [facility] Anion Gap 10 2 - 15 mmol/L 02/25/2025 4:29 PM [facility] Anion Gap 10 2 - 15 mmol/L 02/25/2025 4:29 PM [facility] BUN 5(L) 7 - 24 mg/dL 02/25/2025 4:29 PM [facility] Creatinine, Blood 0.50 0.50 - 1.10 mg/dL 02/25/2025 4:29 PM [facility] Glucose, Blood 98 50 - 100 mg/dL 02/25/2025 4:29 PM [facility] Calcium 8.7 8.5 - 10.5 mg/dL 02/25/2025 4:29 PM [facility] Total Protein 6.7 6.2 - 8.2 g/dL 02/25/2025 4:29 PM [facility] Albumin, Blood 4.2 3.4 - 5.2 g/dL 02/25/2025 4:29 PM [facility] AST (SGOT) 14 11 - 40 U/L 02/25/2025 4:29 PM [facility] ALT (SGPT) 8 5 - 35 U/L 02/25/2025 4:29 PM [facility] Alkaline Phosphatase 29(L) 35 - 150 U/L 02/25/2025 4:29 PM [facility] Total Bilirubin 0.6 0.2 - 1.2 mg/dL 02/25/2025 4:29 PM [facility] Estimated GFR(CKD-EPI) 133 mL/min/BSA 02/25/2025 4:29 PM [facility] Blood PERIPHERAL BLOOD SPECIMEN / Unknown Venipuncture / Unknown 02/25/2025 3:38 PM EDT 02/25/2025 3:42 PM EDT us Noemi Miller MD LAB BLOOD ORDERABLES Final Result [facility] [address] [place] [phone], [place] * (ABNORMAL) CBC (02/25/2025 3:38 PM EDT) WBC 4.91 3.90 - 10.80 K/uL 02/25/2025 3:54 PM EDT [facility] RBC 4.35 3.93 - 5.29 M/uL 02/25/2025 3:54 PM EDT [facility] Hemoglobin 11.8(L) 12.0 - 15.2 g/dL 02/25/2025 3:54 PM EDT [facility] Hematocrit 36.3 34.1 - 44.9 % 02/25/2025 3:54 PM EDT [facility] MCH 27.1 25.6 - 32.2 pg 02/25/2025 3:[facility] MCHC 32.5 32.0 - 36.0 g/dL 02/25/2025 3:54 PM [facility] MCV 83 81 - 96 fL 02/25/2025 3:54 PM [facility] RDW 11.8 11.5 - 14.0 % 02/25/2025 3:54 PM [facility] Platelet Count 227 154 - 369 K/uL 02/25/2025 3:54 PM [facility] Blood PERIPHERAL BLOOD SPECIMEN / Unknown Venipuncture / Unknown 02/25/2025 3:38 PM EDT 02/25/2025 3:42 PM EDT us Noemi Miller MD LAB BLOOD ORDERABLES Final Result [facility] [address] [place] [phone], [place] * (ABNORMAL) Acetaminophen Level (02/25/2025 10:28 AM EDT) Acetaminophen Result,Blood <5(L) 10 - 30 ug/mL 02/25/2025 11:39 AM EDT [facility] Blood PERIPHERAL BLOOD SPECIMEN / Unknown Venipuncture / Unknown 02/25/2025 10:28 AM EDT 02/25/2025 10:52 AM EDT Shell Wilson MD LAB BLOOD ORDERABLES Final Re sult Performing Organization Address [facility] de Phone Number [facility] [address] [place] [phone], [place] * Prothrombin Time - INR (02/25/2025 9:05 AM EDT) Prothrombin Time 14.5 12.1 - 14.6 s 02/25/2025 9:37 AM EDT [facility] INR 1.1 <5.0 02/25/2025 9:37 AM EDT [facility] Blood PERIPHERAL BLOOD SPECIMEN / Unknown Venipuncture / Unknown 02/25/2025 9:05 AM EDT 02/25/2025 9:16 AM EDT Shell Wilson MD LAB BLOOD ORDERABLES Final Re sult Performing Organization Address [facility] Phone Number [facility] [address] [place] [phone], [place] * (ABNORMAL) Acetaminophen Level (02/24/2025 11:15 PM EDT) Acetaminophen Result,Blood 61(HH) 10 - 30 ug/mL 02/24/2025 11:58 PM EDT [facility] Blood PERIPHERAL BLOOD SPECIMEN / Unknown Venipuncture / Unknown 02/24/2025 11:15 PM EDT 02/24/2025 11:18 PM EDT John Anderson MD LAB BLOOD ORDERABLES Final Res ult Performing Organization Address [facility] de Phone Number [facility] [address] [place] [phone], [place] * Drug Screen, Urine (02/24/2025 7:51 PM EDT) Amphetamines Screen, Urine Negative Negative 02/24/2025 8:21 PM [facility] Barbiturates Screen, Urine Negative Negative 02/24/2025 8:21 PM [facility] Benzodiazepine Screen, Urine Negative Negative 02/24/2025 8:21 PM [facility] Buprenorphine Screen, Urine Negative Negative 02/24/2025 8:21 PM [facility] Cannabinoids Screen, Urine Negative Negative 02/24/2025 8:21 PM [facility] Cocaine Metabolite Screen, Urine Negative Negative 02/24/2025 8:21 PM [facility] Fentanyl Screen, Urine Negative Negative 02/24/2025 8:21 PM [facility] Methadone Screen, Urine Negative Negative 02/24/2025 8:21 PM [facility] Opiates Screen, Urine Negative Negative 02/24/2025 8:21 PM [facility] Oxycodone Screen, Urine Negative Negative 02/24/2025 8:21 PM [facility] Propoxyphene Screen, Urine Negative Negative 02/24/2025 8:21 PM [facility] Tricyclics Screen Negative Negative 025 8:21 PM [facility] Comment 02/24/2025 8:21 PM [facility] Comment: The cut-off concentration for a positive result for each drug is listed below: Drug Cut-off value Amphetamines >1000 ng/mL Barbiturates >200 ng/mL Benzodiazepines >300 ng/mL Buprenorphine >5 ng/mL Cannabinoids >50 ng/mL Cocaine >300 ng/mL Fentanyl >5.0 ng/mL Opiates >300 ng/mL Methadone >300 ng/mL Oxycodone >100 ng/mL This is only a screening; positive results are not confirmed by a second method; The results must be used for medical purposes only. Urine URINE SPECIMEN / Unknown Collection / Unknown 02/24/2025 7:51 PM EDT 02/24/2025 7:53 PM EDT John Anderson MD URINE ORDERABLES Final Result [facility] [address] [place] [address], [place] * (ABNORMAL) CBC and Differential (02/24/2025 7:50 PM EDT) WBC 6.60 3.90 - 10.80 K/uL 02/24/2025 7:57 PM [facility] RBC 4.27 3.93 - 5.29 M/uL 02/24/2025 7:57 PM [facility] Hemoglobin 11.7(L) 12.0 - 15.2 g/dL 02/24/2025 7:57 PM [facility] Hematocrit 35.5 34.1 - 44.9 % 02/24/2025 7:57 PM [facility] MCH 27.4 25.6 - 32.2 pg 02/24/2025 7:57 PM [facility] MCHC 33.0 32.0 - 36.0 g/dL 02/24/2025 7:57 PM [facility] MCV 83 81 - 96 fL 02/24/2025 7:57 PM [facility] RDW 12.1 11.5 - 14.0 % 02/24/2025 7:57 PM [facility] Platelet Count 243 154 - 369 K/uL 02/24/2025 7:57 PM [facility] Neutrophil 54.2 % 02/24/2025 7:57 PM [facility] Lymphocyte 35.5 % 02/24/2025 7:57 PM [facility] Monocyte 6.7 % 02/24/2025 7:57 PM [facility] Eosinophil 2.6 % 02/24/2025 7:57 PM [facility] Basophil 0.8 % 02/24/2025 7:57 PM [facility] Immature Granulocyte ([place], Myelo, Promyelocyte) 0.2 % 02/24/2025 7:57 PM [facility] Absolute Neutrophil Count 3.59 1.68 - 7.99 K/uL 02/24/2025 7:57 PM [facility] Absolute Immature Granulocyte ([place], Myelo, Promyelocyte) 0.01 0.00 - 0.09 K/uL 02/24/2025 7:57 PM [facility] Absolute Lymphocyte Count 2.34 0.66 - 4.75 K/uL 02/24/2025 7:57 PM [facility] Absolute Monocyte Count 0.44 0.16 - 1.40 K/uL 02/24/2025 7:57 PM [facility] Absolute Eosinophil Count 0.17 0.00 - 0.60 K/uL 02/24/2025 7:57 PM [facility] Absolute Basophil Count 0.05 0.00 - 0.32 K/uL 02/24/2025 7:57 PM [facility] Blood PERIPHERAL BLOOD SPECIMEN / Unknown Venipuncture / Unknown 02/24/2025 7:50 PM EDT 02/24/2025 7:53 PM EDT John Anderson MD LAB BLOOD ORDERABLES Final Res ult Performing Organization Address [facility]/ZIP Co de Phone Number [facility] [address] [place] [phone], [place] * (ABNORMAL) Toxicology Screen, Plasma (02/24/2025 7:50 PM EDT) Acetaminophen Result,Blood 105(HH) 10 - 30 ug/mL 02/24/2025 8:37 PM EDT [facility] Alcohol <10 <10 mg/dL 02/24/2025 8:37 PM EDT [facility] Salicylate Level, Blood <1 <30 mg/dL 02/24/2025 8:37 PM EDT [facility] Blood PERIPHERAL BLOOD SPECIMEN / Unknown Venipuncture / Unknown 02/24/2025 7:50 PM EDT 02/24/2025 7:53 PM EDT John Anderson MD LAB BLOOD ORDERABLES Final Res ult Performing Organization Address [facility]/ZIP Co de Phone Number [facility] [address] [place] [phone], [place] * HCG, serum, qualitative (02/24/2025 7:50 PM EDT) HCG, Qualitative, Serum Negative Negative 02/24/2025 8:10 PM EDT [facility] Blood PERIPHERAL BLOOD SPECIMEN / Unknown Venipuncture / Unknown 02/24/2025 7:50 PM EDT 02/24/2025 7:53 PM EDT John Anderson MD LAB BLOOD ORDERABLES Final Res ult Performing Organization Address [facility]/ZIP Co de Phone Number [facility] [address] [place] [address], [place] * PT-INR (02/24/2025 7:50 PM EDT) Pathologist [facility] Prothrombin Time 14.0 12.1 - 14.6 s 02/24/2025 8:07 PM EDT [facility] INR 1.0 <5.0 02/24/2025 8:07 PM EDT [facility] Blood PERIPHERAL BLOOD SPECIMEN / Unknown Venipuncture / Unknown 02/24/2025 7:50 PM EDT 02/24/2025 7:53 PM EDT John Anderson MD LAB BLOOD ORDERABLES Final Res ult Performing Organization Address [facility] Co de Phone Number [facility] [address] [place] [address], [place] * (ABNORMAL) Comprehensive Metabolic Panel (02/24/2025 7:50 PM EDT) Pathologist [facility] Sodium 141 135 - 146 mmol/L 02/24/2025 8:21 PM EDT [facility] Potassium 4.3 3.4 - 5.2 mmol/L 02/24/2025 8:21 PM EDT [facility] Comment:Samples tested in se rum may exhibit a higher potassium value than those tested on plasma. Our current range is based on plasma testing. Chloride 106 98 - 110 mmol/L 02/24/2025 8:21 PM EDT [facility] Total CO2/Bicarbonate 25 24 - 32 mmol/L 02/24/2025 8:21 PM [facility] Anion Gap 11 2 - 15 mmol/L 02/24/2025 8:21 PM [facility] Anion Gap 10 2 - 15 mmol/L 02/24/2025 8:21 PM [facility] BUN 9 7 - 24 mg/dL 02/24/2025 8:21 PM [facility] Creatinine, Blood 0.60 0.50 - 1.10 mg/dL 02/24/2025 8:21 PM [facility] Glucose, Blood 101(H) 50 - 100 mg/dL 02/24/2025 8:21 PM [facility] Calcium 9.2 8.5 - 10.5 mg/dL 02/24/2025 8:21 PM [facility] Total Protein 7.2 6.2 - 8.2 g/dL 02/24/2025 8:21 PM [facility] Albumin, Blood 4.4 3.4 - 5.2 g/dL 02/24/2025 8:21 PM [facility] AST (SGOT) 18 11 - 40 U/L 02/24/2025 8:21 PM [facility] ALT (SGPT) 10 5 - 35 U/L 02/24/2025 8:21 PM [facility] Alkaline Phosphatase 31(L) 35 - 150 U/L 02/24/2025 8:21 PM [facility] Total Bilirubin 0.6 0.2 - 1.2 mg/dL 02/24/2025 8:21 PM [facility] Estimated GFR(CKD-EPI) 127 mL/min/BSA 02/24/2025 8:21 PM [facility] Blood PERIPHERAL BLOOD SPECIMEN / Unknown Venipuncture / Unknown 02/24/2025 7:50 PM EDT 02/24/2025 7:53 PM EDT us John Anderson MD LAB BLOOD ORDERABLES Final Res ult [facility] [address] [place] [phone], documented in this encounter Visit Diagnoses Diagnosis Tylenol toxicity, accidental or unintentional, initial encounter- Primary Intentional acetaminophen overdose, initial encounter ([facility]) Depression with suicidal ideation documented in this encounter Admitting Diagnoses Diagnosis Tylenol toxicity, accidental or unintentional, initial encounter documented in this encounter Administered Medications Inactive Administered Medications - up to 3 most recent administrations Medication Order MAR Action Action Date Dose Rate Site acetylcysteine (ACETADOTE) 100 mg/kg = 4.08 g in dextrose 5% 1,000 mL infusion 4.08 g (100 mg/kg 40.8 kg), Intravenous, Once, On Tue02/25/25 at 0200, For 1 dose New Bag 02/25/2025 3:20 AM EDT 4.08 g 62.5 mL/hr acetylcysteine (ACETADOTE) 150 mg/kg = 6.12 g in dextrose 5% 200 mL infusion 6.12 g (150 mg/kg 40.8 kg), Intravenous, Once, On Tue02/24/25 at 2100, For 1 dose New Bag 02/24/2025 9:43 PM EDT 6.12 g 200 mL/hr acetylcysteine (ACETADOTE) 50 mg/kg = 2.04 g in dextrose 5% 500 mL infusion 2.04 g (50 mg/kg 40.8 kg), Intravenous, Once, On Tue02/24/25 at 2200, For 1 dose New Bag 02/24/2025 10:58 PM EDT 2.04 g 125 mL/hr famotidine (PEPCID) tablet 20 mg 20 mg, Oral, 2 times daily, First dose on Tue02/26/25 at 0900, Until Discontinued Given 02/26/2025 10:00 AM EDT 20 mg ibuprofen (MOTRIN) tablet 600 mg 600 mg, Oral, Every 8 hours PRN, Starting on Tue02/26/25 at 1429, Until Tue02/26/25 at 1908, mild (1-3) pain, moderate (4-6) pain Given 02/26/2025 2:57 PM EDT 600 mg peripheral line: sodium chloride (NS) 0.9% flush 3 mL, Intravenous, Every 12 hours scheduled, First dose on Tue02/25/25 at 2100, Until Discontinued Given 02/26/2025 10:03 AM EDT 3 mL peripheral line: sodium chloride 0.9 % (NS) flush 3 mL, Intravenous, Every 1 min PRN, Starting on Tue02/25/25 at 1531, Until Tue02/26/25 at 1908, line care documented in this encounter Active and Recently Administered Medications Times are shown in EDT. Scheduled Medication Order 02/24/2025 02/25/2025 02/26/2025 acetylcysteine (ACETADOTE) 100 mg/kg = 4.08 g in dextrose 5% 1,000 mL infusion (COMPLETED)(Linked Group 1) 4.08 g (100 mg/kg 40.8 kg), Intravenous, Once, On Tue02/25/25 at 0200, For 1 dose 0320 (New Bag - Provider: Lianna Valderrama RN)2215 (Stopped - Provider: Rahel Greenberg RN) acetylcysteine (ACETADOTE) 150 mg/kg = 6.12 g in dextrose 5% 200 mL infusion (COMPLETED)(Linked Group 1) 6.12 g (150 mg/kg 40.8 kg), Intravenous, Once, On Tue02/24/25 at 2100, For 1 dose 2143 (New Bag - Provider: MariaD olores Hyatt RN)2243 (Stopped - Provider: Maria Dolores Hyatt RN) acetylcysteine (ACETADOTE) 50 mg/kg = 2.04 g in dextrose 5% 500 mL infusion (COMPLETED)(Linked Group 1) 2.04 g (50 mg/kg 40.8 kg), Intravenous, Once, On Tue02/24/25 at 2200, For 1 dose 2258 (New Bag - Provider: Maria Dolores Hyatt RN) 0316 (Stopped - Provider: Lianna Valderrama RN) famotidine (PEPCID) tablet 20 mg 20 mg, Oral, 2 times daily, First dose on Tue02/26/25 at 0900, Until Discontinued 1000 (Given - Provider: Angi Gonzalez RN) peripheral line: sodium chloride (NS) 0.9% flush(Linked Group 2) 3 mL, Intravenous, Every 12 hours scheduled, First dose on Tue02/25/25 at 2100, Until Discontinued 2037 (Not Given - Provider: Rahel Greenberg RN - Reason: Other - Indicate below - Comment: IV infusing) 1003 (Given - Provider: Angi Gonzalez RN) PRN Medication Order 02/24/2025 02/25/2025 02/26/2025 ibuprofen (MOTRIN) tablet 600 mg 600 mg, Oral, Every 8 hours PRN, Starting on Tue02/26/25 at 1429, Until Tue02/26/25 at 1908, mild (1-3) pain, moderate (4-6) pain 1457 (Given - Provid er: Angi Gonzalez RN) peripheral line: sodium chloride 0.9 % (NS) flush(Linked Group 2) 3 mL, Intravenous, Every 1 min PRN, Starting on Tue02/25/25 at 1531, Until Tue02/26/25 at 1908, line care Linked Groups Order Group 1: acetylcysteine (ACETADOTE) 150 mg/kg = 6.12 g in dextrose 5% 200 mL infusion (COMPLETED)Jump to med 6.12 g (150 mg/kg 40.8 kg), Intravenous, Once, On Tue02/24/25 at 2100, For 1 dose Followed by acetylcysteine (ACETADOTE) 50 mg/kg = 2.04 g in dextrose 5% 500 mL infusion (COMPLETED)Jump to med 2.04 g (50 mg/kg 40.8 kg), Intravenous, Once, On Tue02/24/25 at 2200, For 1 dose Followed by acetylcysteine (ACETADOTE) 100 mg/kg = 4.08 g in dextrose 5% 1,000 mL infusion (COMPLETED)Jump to med 4.08 g (100 mg/kg 40.8 kg), Intravenous, Once, On Tue02/25/25 at 0200, For 1 dose Group 2: Insert and Maintain Peripheral IV (CANCELED) Routine, Continuous, Starting on Tue02/25/25 at 1532, Until Specified And peripheral line: sodium chloride (NS) 0.9% flushJump to med 3 mL, Intravenous, Every 12 hours scheduled, First dose on Tue02/25/25 at 2100, Until Discontinued And peripheral line: sodium chloride 0.9 % (NS) flushJump to med 3 mL, Intravenous, Every 1 min PRN, Starting on Tue02/25/25 at 1531, Until Tue02/26/25 at 1908, line care documented in this encounter Care Teams Calendering Machine Operator Relationship Specialty Start Date End Date None, Pcp, PCP - General 02/24/25 02/25/25 Markie Gaines NP [facility] [place] [address] PCP - General 02/26/25 documented as of this encounter
--- OUTSIDE RECORDS SUMMARY | 2025-02-26 19:37 | XMS_ITS | Encounter Summary ---
Author Organization [facility] r Address [address] [place] [address] Phone Care Team Providers Care Circus Trainer Name Role Phone Nancy Ann MD Primary Care Provider [phone] Markie Gaines RASPER MACHINE OPERATOR Primary Care Provider [phone] Josselyn Hutton RASPER MACHINE OPERATOR Unavailable [phone] Karla Verma RASPER MACHINE OPERATOR Unavailable [phone] Encounter Details Date Type Department Care Team (Late st Contact Info) Description 06/20/2023 Telephone [facility] [address] [place] [phone] Nancy Ann MD [address] [place], [place] [id number] Social History Tobacco Use Types Packs/Day Years Used Date Smoking Tobacco: Never Assessed Housing Answer Date Recorded What is your living situation today? I have a [facility] place to live 11/04/2022 Medications Answer Date Recorded Do you have trouble paying for prescriptions? No 11/04/2022 Utilities Answer Date Recorded Do you have trouble paying f or utilites (heat, electricity, internet, or phone bill)? No 11/04/2022 Caregiving [place] Answer Date Recorded Taking care of a child, elder, or disabled perso n No 11/04/2022 Employment Answer Date Recorded Looking for a job, changing jobs, or getting job training No 11/04/2022 Education Answer Date Recorded Getting more education or he lp with school (early child education under 5 years old, high school diploma or GED, college level education) No 11/04/2022 Food Answer Date Recorded Within the past 12 months, w ere you worried whether your food would run out before you got money to buy more? Never true 0 11/04/2022 Within the past 12 months, d id the food you bought just didn't last and you didn't have money to get more? Never true 10/2022 Transportation Answer Date Recorded Do you have trouble getting transportation to medical appointments? No 11/04/2022 Social Support Answer Date Recorded Getting more education or he lp with school (early child education under 5 years old, high school diploma or GED, college level education) No 11/04/2022 Comments No Sex and Gender Information Value Date Recorded Sex Assigned at Female 12/06/2022 10:54 AM EDT Legal Sex Female 4:55 PM EDT Gender Identity Female 11/16/2022 4:55 PM EDT Sexual Orientation Straight 11/16/2022 4: 55 PM EDT documented as of this encounter Miscellaneous Notes * Telephone Encounter - Sofia Martin - 06/20/2023 12:25 PM EST pt called that he still waiting for phone call appt. Please call pt. documented in this encounter Plan of Treatment Upcoming Encounters Date Type Department Care Team (Late st Contact Info) Description 03/12/2025 10:00 AM EDT Clinical Support [facility] [address] [place] [address] documented as of this encounter Visit Diagnoses Not on filedocumented in this encounter Care Teams Circus Trainer Relationship Specialty Start Date End Date Nancy Ann MD [address] [place] [phone] PCP - General 12/22/22 09/17/24 Markie Gaines NP [address] [place] [address] PCP - General Family Medicine 09/18/24 Josselyn Hutton NP [address] [place] [phone] PCP - Insurance 11/14/24 01/08/25 Karla Verma NP [address] [place] [phone] PCP - Insurance 01/09/25 documented as of this encounter
--- OUTSIDE RECORDS SUMMARY | 2025-02-26 19:37 | XMS_ITS | Encounter Summary ---
Author Organization [facility] r Address [address] [place] [address] Phone Care Team Providers Care Maintenance Supervisor Electrical Name Role Phone Nancy Ann MD Primary Care Provider [phone] Markie Gaines NP Primary Care Provider [phone] Josselyn Hutton SUPERVISOR GLYCERIN Unavailable [phone] Karla Verma SUPERVISOR GLYCERIN Unavailable [phone] Reason for Visit * Reason Comments Med Change Request Encounter Details Date Type Department Care Team (Late st Contact Info) Description 07/10/2023 Refill [facility] [address] [place] [address] Sharron Sparrow CNM [address] [place] [address] care following vaginal delivery; depression Social History Tobacco Use Types Packs/Day Years Used Date Smoking Tobacco: Never Assessed Housing Answer Date Recorded What is your living situation today? I have a [facility] to live 11/04/2022 Medications Answer Date Recorded Do you have trouble paying for prescriptions? No 11/04/2022 Utilities Answer Date Recorded Do you have trouble paying f or utilites (heat, electricity, internet, or phone bill)? No 11/04/2022 Caregiving [place] Answer Date Recorded Taking care of a [...] PM EDT documented as of this encounter Plan of Treatment Upcoming Encounters Date Type Department Care Team (Late st Contact Info) Description 03/12/2025 10:00 AM EDT Clinical Support [facility] [place] [address] documented as of this encounter Visit Diagnoses Diagnosis care following vaginal delivery depression Mental disorders of mother, complicating , childbirth, or the puerperium, unspecified as to episode of care documented in this encounter Care Teams Maintenance Supervisor Electrical Relationship Specialty Start Date End Date Nancy Ann MD [address] [place] [phone] PCP - General 12/22/22 09/17/24 Markie Gaines NP [address] [place] [phone] PCP - General Family Medicine 09/18/24 Josselyn Hutton NP [address] [place] [phone] PCP - Insurance 11/14/24 01/08/25 Karla Verma NP [address] [place] [address] PCP - Insurance 01/09/25 documented as of this encounter
--- OUTSIDE RECORDS SUMMARY | 2025-02-26 19:37 | XMS_ITS | Encounter Summary ---
Author Organization [facility] Address [address] [place] [id number] Care Team Providers Care Dish Room Worker Name Role Phone None, Pcp MD Primary Care Provider Unavailabl e Encounter Details Date Type Department Care Team (Latest Contact Info) Description 02/24/2025 Travel Social History Tobacco Use Types Packs/Day Years Used Date Smoking Tobacco: Never Assessed Comments Unknown Sex and Gender Information Value Date Recorded Sex Assigned at Female 02/24/2025 7:14 PM EDT Legal Sex Female 1:58 AM EST Gender Identity Female 02/24/2025 7:14 PM EDT Sexual Orientation Not on file documented as of this encounter Functional Status * Are you [...] EDT Page Evans documented in this encounter Plan of Treatment Not on file documented as of this encounter Visit Diagnoses Not on filedocumented in this encounter Care Teams Dish Room Worker Relationship Specialty Start Date End Date None, Pcp, PCP - General 02/24/25 02/25/25 documented as of this encounter
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
--- OUTSIDE RECORDS SUMMARY | 2025-02-26 19:37 | XMS_ITS | Encounter Summary ---
Author Organization [facility] r Address [address] [place] [address] Phone Care Team Providers Care Citrus Fruit Packer Name Role Phone Nancy Ann MD Primary Care Provider [phone] Markie Gaines FILM PRODUCER Primary Care Provider [phone] Josselyn Hutton FILM PRODUCER Unavailable [phone] Karla Verma FILM PRODUCER Unavailable [phone] Encounter Details Date Type Department Care Team (Late st Contact Info) Description 12/23/2022 Telephone [facility] [address] [place] [address] Radha Faustin CPhT [address] [place] [address] Social History Tobacco Use Types Packs/Day Years Used Date Smoking Tobacco: Never Assessed Housing Answer Date Recorded What is your living situation today? I have a [facility] place to live 11/04/2022 Medications Answer Date Recorded Do you have trouble paying for prescriptions? No 11/04/2022 Utilities Answer Date Recorded Do you have trouble paying f or utilites (heat, electricity, internet, or phone bill)? No 11/04/2022 Caregiving [place] Answer Date Recorded Taking care of a [...] GED, college level education) No 11/04/2022 Comments Yes Sex and Gender Information Value Date Recorded Sex Assigned at Female 12/06/2022 10:54 AM EDT Legal Sex Female 4:55 PM EDT Gender Identity Female 11/16/2022 4:55 PM EDT Sexual Orientation Straight 11/16/2022 4: 55 PM EDT documented as of this encounter Miscellaneous Notes * Telephone Encounter - Radha Faustin RPh - 12/23/2022 1:43 PM EDT Hello, The insurance plan is now requiring 90 day supply for prescription coverage for the following medications : 1. Ferosul oral tab 325 (65 mg ) mg 2. Vitamin C tab 500 mg 3. 4. Any questions, please call [phone] [facility] documented in this encounter Plan of Treatment Upcoming Encounters Date Type Department Care Team (Late st Contact Info) Description 03/12/2025 10:00 AM EDT Clinical Support [facility] [address] [place] [phone] documented as of this encounter Visit Diagnoses Not on filedocumented in this encounter Care Teams Citrus Fruit Packer Relationship Specialty Start Date End Date Nancy Ann MD [address] [place], [place] [phone] PCP - General 12/22/22 09/17/24 Markie Gaines NP [address] [place] [address] PCP - General Family Medicine 09/18/24 Josselyn Hutton NP [address] [place] [phone] PCP - Insurance 11/14/24 01/08/25 Karla Verma NP [address] [place] [phone] PCP - Insurance 01/09/25 documented as of this encounter
--- OUTSIDE RECORDS SUMMARY | 2025-02-26 19:37 | XMS_ITS | Clinical Summary ---
Author Organization [facility] Address [address] [place], [place] [address] Care Team Providers Care Bulk Plant Supervisor Name Role Phone Markie Gaines EDWARD Primary Care Provider [phone] Allergies No known active allergies Medications famotidine (PEPCID) 20 MG tablet Take 1 tablet (20 mg total) by mouth 2 times a day as needed for heartburn. 01/09/2025 Active Active Problems Problem Noted Date Diagnosed Date Tylenol toxicity, accidental or unintentional, initial encounter 02/25/2025 Encounters Date Type Department Care Team Description 02/24/2025 7:11 PM EDT - 02/26/2025 5:07 PM EDT Hospital Encounter [facility] Emergency Department [address] [place] [address] John Anderson MD Stonely, Wesley, MD Da Costa, Anabela C, MD Ravikumar, Rekha, MD Intentional acetaminophen overdose, initial encounter ([facility]) (Primary Dx); Depression with suicidal ideation Discharge Disposition: Psychiatric Hospital 02/24/2025 Travel from Last 3 Months Social History Tobacco Use Types Packs/Day Years [...] any time in the past 12 m [facility], were you homeless or living in a long term (including now)? No 02/26/2025 [facility] Utilities Answer Date Recorded In the past 12 months has th e electric, gas, oil, or water Tendr threatened to shut off services in your [...] PM EDT Sexual Orientation Not on file Last Filed Vital Signs Vital Sign Reading [...] Mass Index 19.48 02/24/2025 7:59 PM EDT Plan of Treatment Health Maintenance Due Date Last Done Comments Depression Screening 2002 Hepatitis C Screening 2016 COVID-19 Vaccine (2023-2 5 season) 2024 Influenza Vaccine (#1) 2025 , 11/04/2022 Cervical Cancer Screening 10/10/2027 Pap Smear 10/10/2027 10/09/2024 Blood Pressure 02/26/2029 02/26/2025 DTaP,Tdap,and Td Vaccines (2 - Td or Tdap) 12/06/2032 12/06/2022 Meningococcal B Vaccines Aged Out No longer eligible based on patient's age to complete this topic Meningococcal Vaccines Aged Out No lo nger eligible based on patient's age to complete this topic Pneumococcal Vaccine: Pediatrics (0 to 5 Years) and At-Risk Patients (6 to 64 Years) Aged Out No longer eligible b ased on patient's age to complete this topic Procedures Procedure Name Priority Date/Time Associated Diagnosis Comments PROTIME-INR STAT 02/26/2025 4:03 PM EDT COMPREHENSIVE METABOLIC PANEL STAT 02/26/2025 1:39 PM EDT CBC AND DIFFERENTIAL Timed 02/26/2025 6:40 AM EDT CBC AND DIFFERENTIAL Timed 02/26/2025 6:40 AM EDT PROTIME-INR Timed 02/26/2025 6:40 AM EDT COMPREHENSIVE METABOLIC PANEL Timed 02/26/2025 6:40 AM EDT LABELS FOR EXTRA TUBES Routine 02/25/2025 4:48 PM EDT YELLOW TOP Routine 02/25/2025 4:48 PM EDT PROTIME-INR STAT 02/25/2025 4:48 PM EDT COMPREHENSIVE METABOLIC PANEL Routine 02/25/2025 3:38 PM EDT CBC Routine 02/25/2025 3:38 PM EDT ACETAMINOPHEN LEVEL [...] AND DIFFERENTIAL STAT 02/24/2025 7:50 PM EDT CBC AND DIFFERENTIAL STAT 02/24/2025 7:50 PM EDT TOXICOLOGY SCREEN, BLOOD STAT 02/24/2025 7:50 PM EDT HCG, SERUM, QUALITATIVE STAT 02/24/2025 7:50 PM EDT PROTIME-INR STAT 02/24/2025 7:50 PM EDT COMPREHENSIVE METABOLIC PANEL STAT 02/24/2025 7:50 PM EDT from Last 3 Months Results * ProTime-INR (02/26/2025 4:03 PM EDT) Only the most recent of5 resultswithin the time period is included. Prothrombin Time 13.8 12.1 - 14.6 s 02/26/2025 4:19 PM EDT [facility] INR 1.0 <5.0 02/26/2025 4:19 PM EDT [facility] Blood PERIPHERAL BLOOD SPECIMEN / Unknown Venipuncture / Unknown 02/26/2025 4:03 PM EDT 02/26/2025 4:05 PM EDT us Shell Wilson MD LAB BLOOD ORDERABLES Final Re sult [facility] [address] [place] [phone], * (ABNORMAL) Comprehensive Metabolic Panel (02/26/2025 1:39 PM EDT) Only the most recent of4 resultswithin the time period is included. Sodium 141 135 - 146 mmol/L 02/26/2025 2:04 PM EDT [facility] Potassium 4.3 3.4 - 5.2 mmol/L 02/26/2025 2:04 PM EDT [facility] Comment:Samples tested in se rum may exhibit a higher potassium value than those tested on plasma. Our current range is based on plasma testing. Chloride 106 98 - 110 mmol/L 02/26/2025 2:04 PM [facility] Total CO2/Bicarbonate 27 24 - 32 mmol/L 02/26/2025 2:04 PM [facility] Anion Gap 8 2 - 15 mmol/L 02/26/2025 2:04 PM [facility] Anion Gap 8 2 - 15 mmol/L 02/26/2025 2:04 PM [facility] BUN 10 7 - 24 mg/dL 02/26/2025 2:04 PM [facility] Creatinine, Blood 0.60 0.50 - 1.10 mg/dL 02/26/2025 2:04 PM [facility] Glucose, Blood 86 50 - 100 mg/dL 02/26/2025 2:04 PM [facility] Calcium 9.0 8.5 - 10.5 mg/dL 02/26/2025 2:04 PM [facility] Total Protein 6.5 6.2 - 8.2 g/dL 02/26/2025 2:04 PM [facility] Albumin, Blood 4.0 3.4 - 5.2 g/dL 02/26/2025 2:04 PM [facility] AST (SGOT) 17 11 - 40 U/L 02/26/2025 2:04 PM [facility] ALT (SGPT) 10 5 - 35 U/L 02/26/2025 2:04 PM [facility] Alkaline Phosphatase 28(L) 35 - 150 U/L 02/26/2025 2:04 PM [facility] Total Bilirubin 0.7 0.2 - 1.2 mg/dL 02/26/2025 2:04 PM [facility] Estimated GFR(CKD-EPI) 127 mL/min/BSA 02/26/2025 2:04 PM [facility] Blood PERIPHERAL BLOOD SPECIMEN / Unknown Venipuncture / Unknown 02/26/2025 1:39 PM EDT 02/26/2025 1:41 PM EDT us Noemi Miller MD LAB BLOOD ORDERABLES Final Result [facility] [address] [place] [address], [place] * CBC and Differential (02/26/2025 6:40 AM EDT) Only the most recent of2 resultswithin the time period is included. WBC 6.05 3.90 - 10.80 K/uL 02/26/2025 7:07 AM [facility] RBC 4.47 3.93 - 5.29 M/uL 02/26/2025 7:07 AM [facility] Hemoglobin 12.2 12.0 - 15.2 g/dL 02/26/2025 7:07 AM [facility] Hematocrit 37.0 34.1 - 44.9 % 02/26/2025 7:07 AM [facility] MCH 27.3 25.6 - 32.2 pg 02/26/2025 7:07 AM [facility] MCHC 33.0 32.0 - 36.0 g/dL 02/26/2025 7:07 AM [facility] MCV 83 81 - 96 fL 02/26/2025 7:07 AM [facility] RDW 12.1 11.5 - 14.0 % 02/26/2025 7:07 AM [facility] Platelet Count 224 154 - 369 K/uL 02/26/2025 7:07 AM [facility] Neutrophil 48.9 % 02/26/2025 7:07 AM [facility] Lymphocyte 35.0 % 02/26/2025 7:07 AM [facility] Monocyte 6.1 % 02/26/2025 7:07 AM [facility] Eosinophil 9.1 % 02/26/2025 7:07 AM [facility] Basophil 0.7 % 02/26/2025 7:07 AM [facility] Immature Granulocyte ([place], Myelo, Promyelocyte) 0.2 % 02/26/2025 7:07 AM [facility] Absolute Neutrophil Count 2.96 1.68 - 7.99 K/uL 02/26/2025 7:07 AM [facility] Absolute Immature Granulocyte ([place], Myelo, Promyelocyte) 0.01 0.00 - 0.09 K/uL 02/26/2025 7:07 AM [facility] Absolute Lymphocyte Count 2.12 0.66 - 4.75 K/uL 02/26/2025 7:07 AM [facility] Absolute Monocyte Count 0.37 0.16 - 1.40 K/uL 02/26/2025 7:07 AM [facility] Absolute Eosinophil Count 0.55 0.00 - 0.60 K/uL 02/26/2025 7:07 AM [facility] Absolute Basophil Count 0.04 0.00 - 0.32 K/uL 02/26/2025 7:07 AM [facility] Blood PERIPHERAL BLOOD SPECIMEN / Unknown Venipuncture / Unknown 02/26/2025 6:40 AM EDT 02/26/2025 7:01 AM EDT us Shell Wilson MD LAB BLOOD ORDERABLES Final Re sult [facility] [address] [place] [id number], [place] * Gold Top (02/25/2025 4:48 PM EDT) Gold Top Tube Received 02/25/2025 6:01 PM EDT [facility] Blood PERIPHERAL BLOOD SPECIMEN / Unknown Venipuncture / Unknown 02/25/2025 4:48 PM EDT 02/25/2025 4:52 PM EDT Shell Wilson MD LAB BLOOD ORDERABLES Final Re sult Performing Organization Address City/[facility] Co de Phone Number [facility] [address] [place] [id number], [place] * (ABNORMAL) CBC (02/25/2025 3:38 PM EDT) WBC 4.91 3.90 - 10.80 K/uL 02/25/2025 3:54 PM [facility] RBC 4.35 3.93 - 5.29 M/uL 02/25/2025 3:54 PM [facility] Hemoglobin 11.8(L) 12.0 - 15.2 g/dL 02/25/2025 3:54 PM [facility] Hematocrit 36.3 34.1 - 44.9 % 02/25/2025 3:54 PM [facility] MCH 27.1 25.6 - 32.2 pg 02/25/2025 3:54 PM [facility] MCHC 32.5 32.0 - 36.0 g/dL 02/25/2025 3:54 PM [facility] MCV 83 81 - 96 fL 02/25/2025 3:54 PM [facility] RDW 11.8 11.5 - 14.0 % 02/25/2025 3:54 PM [facility] Platelet Count 227 154 - 369 K/uL 02/25/2025 3:54 PM [facility] Blood PERIPHERAL BLOOD SPECIMEN / Unknown Venipuncture / Unknown 02/25/2025 3:38 PM EDT 02/25/2025 3:42 PM EDT us Noemi Miller MD LAB BLOOD ORDERABLES Final Result [facility] [address] [place] [phone], * (ABNORMAL) Acetaminophen Level (02/25/2025 10:28 AM EDT) Only the most recent of2 resultswithin the time period is included. Acetaminophen Result,Blood <5(L) 10 - 30 ug/mL 02/25/2025 11:39 AM EDT [facility] Blood PERIPHERAL BLOOD SPECIMEN / Unknown Venipuncture / Unknown 02/25/2025 10:28 AM EDT 02/25/2025 10:52 AM EDT us Shell Wilson MD LAB BLOOD ORDERABLES Final Re sult [facility] [address] [place] [address], * Drug Screen, Urine (02/24/2025 7:51 PM EDT) Pathologist [facility] Amphetamines Screen, Urine Negative Negative 02/24/2025 8:21 PM [facility] Barbiturates Screen, Urine Negative Negative 02/24/2025 8:21 PM [facility] Benzodiazepine Screen, Urine Negative Negative 02/24/2025 8:21 PM [facility] Buprenorphine Screen, Urine Negative Negative 02/24/2025 8:21 PM [facility] Cannabinoids Screen, Urine Negative Negative 02/24/2025 8:21 PM [facility] Cocaine Metabolite Screen, Urine Negative Negative 02/24/2025 8:21 PM [facility] Fentanyl Screen, Urine Negative Negative 02/24/2025 8:21 PM [facility] Methadone Screen, Urine Negative Negative 02/24/2025 8:21 PM [facility] Opiates Screen, Urine Negative Negative 02/24/2025 8:21 PM [facility] Oxycodone Screen, Urine Negative Negative 02/24/2025 8:21 PM [facility] Propoxyphene Screen, Urine Negative Negative 02/24/2025 8:21 PM [facility] Tricyclics Screen Negative Negative 025 8:21 PM [facility] Comment 02/24/2025 8:21 PM [facility] Comment: The cut-off concentration for a [...] John Anderson MD URINE ORDERABLES Final Result Performing Organization Address [facility] [place]/[facility]/ZIP Co de Phone Number [facility] [address] [place] [phone], * (ABNORMAL) Toxicology Screen, Plasma (02/24/2025 7:50 PM EDT) Acetaminophen Result,Blood 105(HH) 10 - 30 ug/mL 02/24/2025 8:37 PM EDT [facility] Alcohol <10 <10 mg/dL 02/24/2025 8:37 PM EDT [facility] Salicylate Level, Blood <1 <30 mg/dL 02/24/2025 8:37 PM EDT [facility] Blood PERIPHERAL BLOOD SPECIMEN / Unknown Venipuncture / Unknown 02/24/2025 7:50 PM EDT 02/24/2025 7:53 PM EDT John Anderson MD LAB BLOOD ORDERABLES Final Res ult Performing Organization Address [facility] [place]/[facility]/ZIP Co de Phone Number [facility] [address] [place] [address], * HCG, serum, qualitative (02/24/2025 7:50 PM EDT) HCG, Qualitative, Serum Negative Negative 02/24/2025 8:10 PM EDT [facility] Blood PERIPHERAL BLOOD SPECIMEN / Unknown Venipuncture / Unknown 02/24/2025 7:50 PM EDT 02/24/2025 7:53 PM EDT John Anderson MD LAB BLOOD ORDERABLES Final Res ult Performing Organization Address City/[facility]/ZIP Co de Phone Number [facility] [address] [place] [address], from Last 3 Months [facility] [employer] [id number] [place] [address] SAFETY NET Advance Directives * Full Code (Latest Code Status on File) Date Activated Date Inactivated Comments 02/25/2025 3:31 PM Question Answer Comments Discussed with/per: Patient Care Teams Bulk Plant Supervisor Relationship Specialty Start Date End Date Markie Gaines NP [facility] [place] [address] PCP - General 02/26/25
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
--- OUTSIDE RECORDS SUMMARY | 2025-02-26 19:37 | XMS_ITS | Clinical Summary ---
Author Organization [facility] Address [address] [place] [address] Care Team Providers Care Braiding Machine Tender Name Role Phone Unavailable Primary Care Provider Unavailabl e Source Comments PLEASE NOTE, if this patient is a minor, it may be UNLAWFUL to discuss sensitive information that is contained in these records (such as FAMILY PLANNING, MENTAL HEALTH or SUBSTANCE ABUSE) with the minor patient's parent or other person without the patient's specific authorization.[facility] Allergies No known active allergies Medications prenat.vits,morgan, [id number] per tablet Take 1 Tablet by mouth once daily 30 Tablet 11 3 Active ferrous sulfate 325 mg (65 mg iron) tabletIndication s:Encounter for supervision of normal first in second trimester ([facility]),Iron deficiency anemia secondary to inadequate dietary iron intake Take 1 Tablet by mouth 2 (two) times daily with a meal 60 Tablet 3 Active ascorbic acid (VITAMIN C) 500 mg tabletIndication s:Encounter for supervision of normal first in second trimester ([facility]),Iron deficiency anemia secondary to inadequate dietary iron intake Take 1 Tablet by mouth 2 (two) times daily 60 Tablet 5 3 Active cetirizine (ZYRTEC) 10 mg tabletIndication s:Encounter for supervision of normal first in second trimester ([facility]),Season al allergies Take 1 Tablet by mouth once daily 30 Tablet 5 3 Active hydrocortisone 2.5 % creamIndications :Encounter for supervision of normal first in second trimester ([facility]),Season al allergies Apply topically 2 (two) times daily To rash on hands and leg for up to 2 weeks at a time 30 g 2 3 Active Active Problems Problem Noted Date Diagnosed Date Seasonal allergies 11/15/2022 Urinary tract infection in m other during second trimester of ([facility]) 11/15/2022 Overview (11/15/2022): Fecalis >100K -> Tx x 14 days, QD. Med not in pt's med list? SOFY @ [facility] [ ] Iron deficiency anemia 11/14/2022 Overview (11/14/2022): hct 30.1 / hgb 10 @ 24wks -> referral to [facility] Hematology for IV Fe++ sent Maternal varicella, non-immune ([facility]) 023 Overview (11/14/2022): Offer VZV PP [ ] Supervision of normal first ([facility]) 11/04/2022 Overview (11/14/2022): Estimated Date of Delivery: 02/24/23 by: LMP Provider: Sharron Sparrow CNM Clinic: [facility] Zika Screen: Social: Country of Origin:[place] FOB:Truon Vamsi DV screen: Denies Depression screen:Denies ETOH/Tobacco/Drug hx:Denies Education/literacy:12 Housing: Lives with her and mother in Law Work: Unemployed Flu Shot date:11/04/22 Pedi provider: Shi Immunizations Immunization Administration Dates Next Due Flu, Preservative Free 11/04/2022 Family History Medical History Relation Name Comments Heart attack Father High Cholesterol Father Hypertension Father Relation Name Status Comments Father Social History Tobacco Use Types Packs/Day Years Used Date Smoking Tobacco: Never Passive Smoke Exposure: Never Smokeless Tobacco: Never Alcohol Use Standard Drinks/Week Comments Not Currently 0 (1 standard drink = 0.6 oz pur e alcohol) Social Connections Answer Date Recorded Connectedness 0 03/13/2024 Financial Resource Strain Answer Date R ecorded Financial Resource Strain 0 2022 Stress Answer Date Recorded Stress 0 10/29/2022 Physical Activity Answer Date Recorded Physical Activity 0 10/29/2022 Food Insecurity Answer Date Recorded Food 0 11/04/2022 Transportation Needs Answer Date Record ed Transportation 0 11/04/2022 Housing Stability Answer Date Recorded Housing 0 11/04/2022 Safety and Environment Answer Date Jimmie rded Safety 0 10/29/2022 Utilities Answer Date Recorded Utilities 0 11/04/2022 Employment Answer Date Recorded Stress 0 11/04/2022 Comments No Sex and Gender Information Value Date Recorded Sex Assigned at Not on file Legal Sex Female 1:17 PM PDT Gender Identity Female 11/04/2022 2:41 PM PDT Sexual Orientation Straight 11/04/2022 2: 41 PM PDT Last Filed Vital Signs Vital Sign Reading Time Taken Comments Blood Pressure 98/57 11/15/2022 9:58 AM EDT Pulse 79 11/04/2022 5:37 PM EDT Temperature 36.6 C (97.8 F) 11/04/2022 5:37 PM EDT Respiratory Rate 20 10/29/2022 11:06 AM EDT Oxygen Saturation 99% 10/29/2022 11:06 AM EDT Inhaled Oxygen Concentration - - Weight 48.3 kg (106 lb 6.4 oz) 11/15/2022 9:58 A M EDT Height 152.4 cm (5') 11/04/2022 5:37 PM EDT Body Mass Index 20.78 11/04/2022 5:37 PM EDT Plan of Treatment Not on file Insurance [facility] [employer] Member Subscriber Plan / Payer (Ef fective 2022-Present) Name:Kat Gomez Relation to Subscriber:Self Name:Kat Gomez Payer ID:[id number] Group ID:[id number] Type:Medicaid Address: [facility] [address] [place] [address]
[2025-02-26 23:57] VITALS: BP 109/68; PULSE 82; RESP 16; TEMP 37.7; O2SAT 98
[2025-02-27 04:36] VITALS: BMI 19.3
--- NOTE | 2025-02-27 05:12 | PC.ADMIT ---
On 02/04/2025 she was brought via ambulance to [facility] following a suicide attempt by overdosing on 10-12 tablets of Tylenol 500mg each. This happened at approximately 18:30 on 02/24/2025. She was monitored in the ED at [facility] until her level came down and she was safe to transport. On 02/25/2025 at 20:00 pt. arrived to via stretcher from [facility] accompanied by . Pt.'s stated that pt. is Danish speaking only. She was shown to the examination room and full skin check was done. No broken areas of skin are noted. Vital signs taken and pt.weighed on standing scale. She was given a brief orientation to and shown to her room. Admission completed with the assistance of her . She apparently was feeling sad and lonely because their 2 year old baby girl is in [place] with pt's mother. They brought the baby there because Yen was feeling depressed at that time because she was missing her parents. Immediately upon ingesting the Tylenol she reported what she had done to her and admitted that she felt remorseful. Upon admission assessment it is clear that she remains remorseful. Her only concern is how soon she will be discharged. When she arrived to her legal status was 12B very shortly after her arrival Arleen Alaniz NP came to to review legal status with the patient and she signed a CV and was placed on 15 minute checks.
[2025-02-27 08:00] VITALS: BP 106/66; PULSE 83; RESP 12; TEMP 36.8; O2SAT 100
--- NOTE | 2025-02-27 11:51 | P.HPPS_ITS ---
[facility] Date of Service: 02/27/25 Chief Complaint: Major Depressive Disorder Sources of Information: patient interviewed and chart reviewed HPI Subjective Notes: Huffman Warning and Conditional Voluntary Healthcare Proxy: No Guardianship: No Medical Problems Affecting Mental Status: No Narrative: 24-year-old Tristanian speaking female with history of depression, presents to [facility] behavioral health from [facility], via ambulance, on 02/05/2025 for suicide attempt by overdosing on Tylenol 500 mg, 10-12 tablets. On interview with the patient, she reports multiple stressors, including missing her 2-year-old daughter who is currently living with the patient's mother in [place], missing her parents who reside in [place], and not having friends, family, or social support. She also reports associated headaches, sleep disturbance and sadness. Her symptoms have been ongoing for few months. However, she experienced racing thoughts a few days before she overdosed on the medications. Also, She recently had a verbal altercation with her , which increased her stress. She notes that she often feels lonely when her leaves her home to have fun with his friends. [place] 2 [place] ago. After she gave to her child, she found life challenging without social support. Her life became very stressful and she was very depressed. Therefore, a year ago, she sent her daughter to the patient's mother in [place]. She felt better after sending her child away. 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 For the past few months, she has been missing her daughter and parents. She thought about going to [place] to join her baby and parents before she [place] the [place] However, due to the current political status of the [facility], she is worried that she may be denied reentry, although she has a document as a legal permanent residence. She has not thought about her , a [facility] citizen, going to [place] to bring their daughter [place] because she thinks about spending time with her family before she brings her child back. She was on an antidepressant, antepartum, a year and a half ago for a few months. She stopped taking the medication after she fell better. She currently denies anxiety or depression. She denies SI/HI/AH/VH. She denies rupert or hypomania episodes. She denies nicotine, alcohol, or illicit drug use. Interpretation by a professional Tristanian courseware developer virtually. Patient seen at 11:50 on 02/27/2025. 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 Completed 12th grade in [place] Substance History: Denies nicotine, alcohol, illicit drug use Trauma History: Denies Diagnostics Vital Signs (24Hr): Vital Signs - 24 hr 02/26/25 23:57 02/27/25 08:00 Temperature 100 F 98.2 F Pulse Rate 82 83 Respiratory Rate 16 12 Blood Pressure 109/68 106/66 Pulse Oximetry 98 100 Oxygen Delivery Method Room Air Room Air BMI result Body Mass Index 19.3 Labs 02/28/25 08:27 Meds/Allergies Allergies Allergies Allergy/AdvReac Type Severity Reaction Status Date / Time No Known Allergies Allergy Verified 02/26/25 20:33 Mental Status Exam Mental Status Exam Narrative: Appearance: Casually dressed, adequate hygiene Behavior: Calm and cooperative throughout the interview. Eye contact is appropriate, and there are no signs of psychomotor agitation or retardation Speech: Normal volume and prosody Thought process: Logical and goal-directed Thought content: Future oriented no self-harming thoughts Mood: Euthymic Affect: Flat SI:denies HI:denies VH/AH:none Delusions: None Insight/judgment: Impaired insight and judgment Memory/cog: Alert, oriented x 4. grossly intact to conversational testing Assessment & Plan Assessment & Plan (1) Depression: Status: Acute Code(s): F32.A - Depression, unspecified (2) Suicide ideation: Status: Acute Code(s): R45.851 - Suicidal ideations Plan 24-year-old Tristanian speaking female with history of depression, presents to [facility] behavioral health from [facility], via ambulance, on 02/05/2025 for suicide attempt by overdosing on Tylenol 500 mg, 10-12 tablets. On interview with the patient, she reports multiple stressors, including missing her 2-year-old daughter who is currently living with the patient's mother in [place], missing her parents who reside in [place], and not having friends, family, or social support. She also reports associated headaches, sleep disturbance and sadness. Her symptoms have been ongoing for few months. However, she experienced racing thoughts a few days before she overdosed on the medications. Also, She recently had a verbal altercation with her , which increased her stress. She notes that she often feels lonely when her leaves her home to have fun with his friends. [place] 2 [place] ago. After she gave to her child, she found life challenging without social support. Her life became very stressful and she was very depressed. Therefore, a year ago, she sent her daughter to the patient's mother in [place]. She felt better after sending her child away. 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 For the past few months, she has been missing her daughter and parents. She thought about going to [place] to join her baby and parents before she brings the child back [place]. However, due to the current political status of the [facility], she is worried that she may be denied reentry, although she has a document as a legal permanent residence. She has not thought about her , a [facility] citizen, going to [place] to bring their daughter to [place] because she thinks about spending time with her family before she brings her child back. She was on an antidepressant, antepartum, a year and a half ago for a few months. She stopped taking the medication after she fell better. She currently denies anxiety or depression. She denies SI/HI/AH/VH. She denies rupert or hypomania episodes. She denies nicotine, alcohol, or illicit drug use. Formulation/Clinical reasoning: Depression: Likely chronic/episodic due to significant stressors. She was started on sertraline 50 mg daily. She notes that she slept better last night and feels comfortable. She feels alone in the room and wants to go home. She currently denies anxiety, depression, SI/HI/AH/VH. She misses her daughter and wants her to spend more time with her. Continue current treatment regimen. Encouraged to engage in groups. Verbalized understanding and agreed with the plan. According to nursing, patient's is visiting today. Plan Admit to M5. CV 15 minutes check. Diagnostics as needed. Collateral contact. Continue remainder of regime. Encouraged full milieu. Discharge planning. Patient educated on: diagnosis, medication risk/benefits and therapeutic strategies Reason for continued inpatient stay Substantial Risk for: harm to self and rapid decompensation Statement Statement: I have reviewed the history and physical and performed a pertinent examination on my patient. No changes have occurred unless specified. If the History and Physical was not performed prior to admission, the Hospitalist's service will be consulted for completing the admission physical. Time Spent With Patient Time: Total time managing care of this patient today ____ minutes.
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
[2025-02-27 20:00] VITALS: BP 117/58; PULSE 75; RESP 18; TEMP 37.1; O2SAT 100
[2025-02-28 08:00] VITALS: BP 105/58; PULSE 64; RESP 16; TEMP 36.9; O2SAT 98
[2025-02-28 08:59] LABS: Alanine Aminotransferase 16 U/L (0-31); Albumin Level 4.5 g/dL (3.5-5.0); Alkaline Phosphatase 30 U/L (39-117); Anion Gap 10 (12-20); Aspartate Amino Transferase 27 U/L (5-31); Blood Urea Nitrogen 15 mg/dL (9-16); Calcium 8.9 mg/dL (8.4-10.2); Carbon Dioxide 31 mmol/L (22-29); Chloride 103 mmol/L (96-108); Cholesterol 162 mg/dL (<200); Creatinine Clr Calc Pharmacy 69.2; Estimated Glomerular Filt Rate > 60; HDL Cholesterol 51 mg/dL (>40); Potassium 3.8 mmol/L (3.3-5.1); Sodium 140 mmol/L (135-145); Total Protein 7.0 g/dL (6.5-8.0); Triglycerides 69 mg/dL (<150)
[2025-02-28 09:14] LABS: Free T4 (Free Thyroxine) 1.12 ng/dL (0.71-1.85); Thyroid Stimulating Hormone 1.03 uIU/mL (0.32-4.0)
[2025-02-28 09:16] LABS: Hemoglobin A1C 103.8935 umol/L; Total Hemoglobin (HGBA1C) 3255.6674 umol/L
--- NOTE | 2025-02-28 09:36 | P.PNPSI_ITS ---
Subjective Subjective Date of Service: 02/28/25 Reason For Visit: Major Depressive Disorder Subjective Notes: Conditional Voluntary Healthcare Proxy: No Guardianship: No Medical Problems Affecting Mental Status: No Interim History: Patient states the her mood is better today. She feels more comfortable around her peers and less worried than yesterday. She does not like the food here. Her brought her food from home yesterday. She is happy that her visited yesterday and is expecting him yo visit today. Sertraline made her sleepy yesterday and this morning. She thinks her current sertraline dose is appropriate and does not want it to decrease. She currently denies anxiety or depression. She denies SI/HI/AH/VH. She is looking forward to be discharged. Interpretation by a professional Tamazight process coordinator via video. Medication Compliance: Yes Side effects from medications: Yes (Sleepiness on sertraline) Attending Groups: No Review of Systems Acute medical concerns: No Review of Systems Review of Systems Yes all other systems are reviewed and are negative Mental Status Exam Mental Status Exam Narrative: Appearance: Casually dressed, adequate hygiene Behavior: Calm and cooperative throughout the interview. Eye contact is appropriate, and there are no signs of psychomotor agitation or retardation Speech: Normal volume and prosody Thought process: Logical and goal-directed Thought content: Future oriented no self-harming thoughts Mood: Euthymic Affect: Constricted SI:denies HI:denies VH/AH:none Delusions: None Insight/judgment: Fair insight and judgment Memory/cog: Alert, oriented x 4. grossly intact to conversational testing Diagnostics Vital Signs (24Hr): Vital Signs - 24 hr 02/27/25 20:00 Temperature 98.8 F Pulse Rate 75 Respiratory Rate 18 Blood Pressure 117/58 L Pulse Oximetry 100 Oxygen Delivery Method Room Air BMI result Body Mass Index 19.3 Labs 02/28/25 08:27 Labs: Laboratory Results - last 48 hr 02/28/25 08:27 Sodium 140 Potassium 3.8 Chloride 103 Carbon Dioxide 31 H Anion Gap 10 L BUN 15 Creatinine 0.75 Estim Creat Clear Calc 69.2 Estimated GFR > 60 Random Glucose 87 Estimat Average Glucose 100 Hemoglobin A1c % 5.1 Calcium 8.9 Total Bilirubin 1.1 H AST 27 ALT 16 Alkaline Phosphatase 30 L Total Protein 7.0 Albumin 4.5 Triglycerides 69 Cholesterol 162 LDL Cholesterol, Calc 98 HDL Cholesterol 51 TSH 1.03 Free T4 1.12 Medications Medications Current Medications Acetaminophen (Acetaminophen 325 Mg Tablet) 650 mg PO Q6H PRN PRN Reason: Headache/Pain, Scale 1-10 Last Admin: 02/27/25 14:21 Dose: 650 mg Al Hydroxide/Mg Hydroxide (Magnesium Hydrox/Alum Hydrox 30 Ml Oral.Susp) 30 ml PO Q6H PRN PRN Reason: Heartburn/Nausea Hydroxyzine HCl (Hydroxyzine Hcl 25 Mg Tablet) 25 mg PO Q6H PRN PRN Reason: mild anxiety Magnesium Hydroxide (Milk Of Magnesia 30 Ml Oral.Susp) 30 ml PO DAILY PRN PRN Reason: Constipation Melatonin (Melatonin 3 Mg Tablet) 3 mg PO BEDTIME KIM Last Admin: 02/27/25 21:51 Dose: 3 mg Nicotine (Nicotine 21 Mg Patch.Td24) 21 mg TRANSDERMA DAILY PRN PRN Reason: nicotine craving Nicotine Polacrilex (Nicotine Polacrilex 2 Mg Gum) 2 mg BUCCAL Q2H PRN PRN Reason: Nicotine Cravings Sertraline HCl (Sertraline Hcl 50 Mg Tablet) 50 mg PO DAILY [facility] Last Admin: 02/28/25 08:31 Dose: Not Given Trazodone HCl (Trazodone Hcl 25 Mg Halftab) 25 mg PO BEDTIME MRX1 PRN PRN Reason: Insomnia Allergies Allergies Allergy/AdvReac Type Severity Reaction Status Date / Time No Known Allergies Allergy Verified 02/26/25 20:33 Assessment & Plan Assessment & Plan (1) Depression: Status: Acute Code(s): F32.A - Depression, unspecified (2) Suicide ideation: Status: Acute Code(s): R45.851 - Suicidal ideations Plan 24-year-old Tamazight speaking female with history of depression, presents to [facility] behavioral health from [facility], via ambulance, on 02/05/2025 for suicide attempt by overdosing on Tylenol 500 mg, 10-12 tablets. On interview with the patient, she reports multiple stressors, including missing her 2-year-old daughter who is currently living with the patient's mother in [place], missing her parents who reside in [place], and not having friends, family, or social support. She also reports associated headaches, sleep disturbance and sadness. Her symptoms have been ongoing for few months. However, she experienced racing thoughts a few days before she overdosed on the medications. Also, She recently had a verbal altercation with her , which increased her stress. She notes that she often feels lonely when her leaves her home to have fun with his friends. [place] After she gave to her child, she found life challenging without social support. Her life became very stressful and she was very depressed. Therefore, a year ago, she sent her daughter to the patient's mother in [place]. She felt better after sending her child away. 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 For the past few months, she has been missing her daughter and parents. She thought about going to [place] to join her baby and parents before she brings the child back to the [place]. However, due to the current political status of the [facility], she is worried that she may be denied reentry, although she has a document as a legal permanent residence. She has not thought about her , a [facility] citizen, going to [place] to bring their daughter to [place] because she thinks about spending time with her family before she brings her child back. She was on an antidepressant, antepartum, a year and a half ago for a few months. She stopped taking the medication after she fell better. She currently denies anxiety or depression. She denies SI/HI/AH/VH. She denies rupert or hypomania episodes. She denies nicotine, alcohol, or illicit drug use. Formulation/Clinical reasoning: Depression: Likely chronic/episodic due to significant stressors. She was started on sertraline 50 mg daily. She notes that she slept better last night and feels comfortable. She feels alone in the room and wants to go home. She currently denies anxiety, depression, SI/HI/AH/VH. She misses her daughter and wants her to spend more time with her. Continue current treatment regimen. Encouraged to engage in groups. Verbalized understanding and agreed with the plan. According to nursing, patient's is visiting today. 02/28: Continue current treatment regimen. Plan Admit to M5. CV 15 minutes check. Diagnostics as needed. Collateral contact. Continue remainder of regime. Encouraged full milieu. Discharge planning. Patient educated on: medication risk/benefits and therapeutic strategies Reason for continued inpatient stay Substantial Risk for: rapid decompensation Time Spent With Patient Time: Total time managing care of this patient today ____ minutes.
--- NOTE | 2025-02-28 09:53 | HO.PM.IMCN ---
History of Present Illness Data of Consult Service Date: 02/28/25 Primary Care Provider: Unknown Physician HPI Reason for consult: New admission H&P This is a 24-year-old Belarusian speaking female who was admitted to [facility] from [facility]. Patient reportedly attempted suicide with overdosing on 10-12 tablets of Tylenol. She was reportedly monitored at [facility] until her Tylenol level came down. Hospitalists were asked to see her for routine medical consultation. Consultation was completed with the assistance of a Belarusian hematology supervisor via video interpreting. Patient denies any chronic medical conditions with the exception of depression. She does not take any medication on a daily basis. She denies the use of tobacco or drugs and drinks alcohol only occasionally. She has no medical complaints at this time. Review of Systems Review of Systems: Yes all other systems are reviewed and are negative Constitutional: Constitutional: Denies fever(s) Cardiovascular: Cardiovascular: Denies chest pain Gastrointestinal: Gastrointestinal: Denies abdominal pain [facility] Social History Household Members: Spouse Housing: Apartment Do you presently have visiting nurse or other home services: No Patient Tobacco Use Status: Never used Tobacco Smoked in Last 30 Days: No Patient Interested in Nicotine Replacement: No Patient Given Instructions on How to Stop Smoking: No Second Hand Smoke Exposure: No Currently Displaying Signs/Symptoms of Drug Intoxication Withdrawal: No Have you been hit, kicked, punched, or otherwise hurt by someone within the past year? If so, by whom?: No Do you feel safe in your current relationship?: Yes Is there a partner from a previous relationship who is making you feel unsafe now?: No Are you made to feel afraid or neglected: No Spiritual Healthcare Practices: Budhist Advance Directives: No Advance Directives Information Provided: No Do you have thoughts of harming others: None Do you have a plan to hurt others: No Plan How much weight loss: 2-13 pounds Nutrition Risks: No Nutritional Risk Patient : No : No Poor oral hygiene: No service: No Sexual orientation: Straight/Heterosexual Meds Allergies Allergy/AdvReac Type Severity Reaction Status Date / Time No Known Allergies Allergy Verified 02/26/25 20:33 Active Medications: Current Medications Acetaminophen (Acetaminophen 325 Mg Tablet) 650 mg PO Q6H PRN PRN Reason: Headache/Pain, Scale 1-10 Last Admin: 02/27/25 14:21 Dose: 650 mg Al Hydroxide/Mg Hydroxide (Magnesium Hydrox/Alum Hydrox 30 Ml Oral.Susp) 30 ml PO Q6H PRN PRN Reason: Heartburn/Nausea Hydroxyzine HCl (Hydroxyzine Hcl 25 Mg Tablet) 25 mg PO Q6H PRN PRN Reason: mild anxiety Magnesium Hydroxide (Milk Of Magnesia 30 Ml Oral.Susp) 30 ml PO DAILY PRN PRN Reason: Constipation Melatonin (Melatonin 3 Mg Tablet) 3 mg PO BEDTIME [facility] Last Admin: 02/27/25 21:51 Dose: 3 mg Nicotine (Nicotine 21 Mg Patch.Td24) 21 mg TRANSDERMA DAILY PRN PRN Reason: nicotine craving Nicotine Polacrilex (Nicotine Polacrilex 2 Mg Gum) 2 mg BUCCAL Q2H PRN PRN Reason: Nicotine Cravings Sertraline HCl (Sertraline Hcl 50 Mg Tablet) 50 mg PO DAILY [facility] Last Admin: 02/28/25 08:31 Dose: Not Given Trazodone HCl (Trazodone Hcl 25 Mg Halftab) 25 mg PO BEDTIME MRX1 PRN PRN Reason: Insomnia Physical Exam Vital Signs and Narrative: Vital Signs: Last Vital Signs Temp 98.8 F 02/27/25 20:00 Pulse 75 02/27/25 20:00 Resp 18 02/27/25 20:00 BP 117/58 L 02/27/25 20:00 Pulse Ox 100 02/27/25 20:00 O2 Del Method Room Air 02/27/25 20:00 BMI result Body Mass Index 19.3 Const: Nutritional Appearance: well nourished Orientation/consciousness: patient oriented x3 Resp: Effort & Inspection: normal respiratory effort and no respiratory distress Auscultation: clear to auscultation bilaterally Cardio: Rate: regular rate Neuro: General: patient oriented x3 Cranial nerves: Yes CN's II-XII intact bilaterally Results Labs 02/28/25 08:27 Labs: Laboratory Results - last 24 hr 02/28/25 08:27 Anion Gap 10 L Estim Creat Clear Calc 69.2 Estimated GFR > 60 Random Glucose 87 Estimat Average Glucose 100 Hemoglobin A1c % 5.1 Calcium 8.9 Total Bilirubin 1.1 H AST 27 ALT 16 Alkaline Phosphatase 30 L Total Protein 7.0 Albumin 4.5 Triglycerides 69 Cholesterol 162 LDL Cholesterol, Calc 98 HDL Cholesterol 51 TSH 1.03 Free T4 1.12 Assessment and Plan (1) General medical exam: Status: Acute Plan This is a 24-year-old Belarusian speaking female with no known past medical history was transferred from [facility] after attempted overdose. No chronic medical conditions. No acute medical issues at this time. Continue care per unit protocol for depression with suicide attempt. reported Tylenol overdose, tylenol level reportedly returned to normal prior to transfer to [facility]. LFTs wnl. Thank you for allowing us to participate in the care of this patient, please feel free to call us if any acute medical issues arise.
[2025-02-28 20:13] VITALS: BP 106/61; PULSE 74; RESP 16; TEMP 36.8; O2SAT 100
[2025-03-01 08:00] VITALS: BP 111/56; PULSE 59; TEMP 36.6; O2SAT 99
--- NOTE | 2025-03-01 09:47 | HO.PSYCHPN ---
Subjective Subjective Date of Service: 03/01/25 Reason For Visit: Major Depressive Disorder Subjective Notes: Conditional Voluntary and 3 Day Healthcare Proxy: No Guardianship: No Medical Problems Affecting Mental Status: No Interim History: Sertraline changed to HS. Pt asks to DC. reports he will take time off from work to care for her. reports they will travel to [facility] hopefully in April. Pt reports feeling worse in the hospital. Medication Compliance: Yes Side effects from medications: No Attending Groups: No Review of Systems Acute medical concerns: No Review of Systems Review of Systems Denies Mental Status Exam Mental Status Exam Patient Appearance: Appropriate Patient Orientation: Person, Place, Time and Situation Level of Consciousness: Alert Patient Behavior: Guarded, Talkative and Crying Mood Description: Depressed Affect Description: Flat Patient Cognition Impaired: No Ability to Follow Directions: Good Speech Pattern: Spontaneous Speech Memory Description: Intact Hallucinations: None Delusions: Not Present Thought Process: Rumination Thought Content: positive for Circumstantial and positive for Perseveration Depressive Symptoms: Thoughts of /Suicide (denies) Judgement: Fair Diagnostics Vital Signs (24Hr): Vital Signs - 24 hr 02/28/25 20:13 03/01/25 08:00 Temperature 98.3 F 97.8 F Pulse Rate 74 59 Respiratory Rate 16 Blood Pressure 106/61 111/56 L Pulse Oximetry 100 99 Oxygen Delivery Method Room Air Room Air BMI result Body Mass Index 19.3 Labs 02/28/25 08:27 Labs: Laboratory Results - last 48 hr 02/28/25 08:27 Sodium 140 Potassium 3.8 Chloride 103 Carbon Dioxide 31 H Anion Gap 10 L BUN 15 Creatinine 0.75 Estim Creat Clear Calc 69.2 Estimated GFR > 60 Random Glucose 87 Estimat Average Glucose 100 Hemoglobin A1c % 5.1 Calcium 8.9 Total Bilirubin 1.1 H AST 27 ALT 16 Alkaline Phosphatase 30 L Total Protein 7.0 Albumin 4.5 Triglycerides 69 Cholesterol 162 LDL Cholesterol, Calc 98 HDL Cholesterol 51 TSH 1.03 Free T4 1.12 Medications Medications Current Medications Acetaminophen (Acetaminophen 325 Mg Tablet) 650 mg PO Q6H PRN PRN Reason: Headache/Pain, Scale 1-10 Last Admin: 02/27/25 14:21 Dose: 650 mg Al Hydroxide/Mg Hydroxide (Magnesium Hydrox/Alum Hydrox 30 Ml Oral.Susp) 30 ml PO Q6H PRN PRN Reason: Heartburn/Nausea Hydroxyzine HCl (Hydroxyzine Hcl 25 Mg Tablet) 25 mg PO Q6H PRN PRN Reason: mild anxiety Magnesium Hydroxide (Milk Of Magnesia 30 Ml Oral.Susp) 30 ml PO DAILY PRN PRN Reason: Constipation Melatonin (Melatonin 3 Mg Tablet) 3 mg PO BEDTIME ON LICENSE OF [facility] Last Admin: 02/28/25 20:42 Dose: 3 mg Nicotine (Nicotine 21 Mg Patch.Td24) 21 mg TRANSDERMA DAILY PRN PRN Reason: nicotine craving Nicotine Polacrilex (Nicotine Polacrilex 2 Mg Gum) 2 mg BUCCAL Q2H PRN PRN Reason: Nicotine Cravings Sertraline HCl (Sertraline Hcl 50 Mg Tablet) 50 mg PO DAILY ON LICENSE OF [facility] Last Admin: 03/01/25 09:20 Dose: 50 mg Trazodone HCl (Trazodone Hcl 25 Mg Halftab) 25 mg PO BEDTIME MRX1 PRN PRN Reason: Insomnia Allergies Allergies Allergy/AdvReac Type Severity Reaction Status Date / Time No Known Allergies Allergy Verified 02/26/25 20:33 Assessment & Plan Assessment & Plan (1) Depression: Status: Acute Code(s): F32.A - Depression, unspecified (2) Suicide ideation: Status: Acute Code(s): R45.851 - Suicidal ideations Plan 24-year-old Anguillan speaking female with history of depression, presents to [facility] behavioral health from [facility], via ambulance, on 02/05/2025 for suicide attempt by overdosing on Tylenol 500 mg, 10-12 tablets. On interview with the patient, she reports multiple stressors, including missing her 2-year-old daughter who is currently living with the patient's mother in [place], missing her parents who reside in [place], and not having friends, family, or social support. She also reports associated headaches, sleep disturbance and sadness. Her symptoms have been ongoing for few months. However, she experienced racing thoughts a few days before she overdosed on the medications. Also, She recently had a verbal altercation with her , which increased her stress. She notes that she often feels lonely when her leaves her home to have fun with his friends. [place]. After she gave to her child, she found life challenging without social support. Her life became very stressful and she was very depressed. Therefore, a year ago, she sent her daughter to the patient's mother in [place]. She felt better after sending her child away. 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 For the past few months, she has been missing her daughter and parents. She thought about going to [place] to join her baby and parents before she [place] the [place] However, due to the current political status of the [facility], she is worried that she may be denied reentry, although she has a document as a legal permanent residence. She has not thought about her , a [employer] citizen, going to [place] to bring their daughter [place] because she thinks about spending time with her family before she brings her child back. She was on an antidepressant, antepartum, a year and a half ago for a few months. She stopped taking the medication after she fell better. She currently denies anxiety or depression. She denies SI/HI/AH/VH. She denies rupert or hypomania episodes. She denies nicotine, alcohol, or illicit drug use. Formulation/Clinical reasoning: Depression: Likely chronic/episodic due to significant stressors. She was started on sertraline 50 mg daily. She notes that she slept better last night and feels comfortable. She feels alone in the room and wants to go home. She currently denies anxiety, depression, SI/HI/AH/VH. She misses her daughter and wants her to spend more time with her. Continue current treatment regimen. Encouraged to engage in groups. Verbalized understanding and agreed with the plan. According to nursing, patient's is visiting today. 02/28: Continue current treatment regimen. 03/01: Change timing of Sertraline to HS Continue to monitor Plan Admit to M5. CV 15 minutes check. Diagnostics as needed. Collateral contact. Continue remainder of regime. Encouraged full milieu. Discharge planning. Reason for continued inpatient stay Substantial Risk for: rapid decompensation Time Spent With Patient Time: Total time managing care of this patient today ____ minutes.
[2025-03-01 20:00] VITALS: BP 137/74; PULSE 71; TEMP 36.7; O2SAT 99
[2025-03-02 08:00] VITALS: BP 99/54; PULSE 60; RESP 18; TEMP 37.1; O2SAT 98
--- NOTE | 2025-03-02 09:03 | P.PNPSI_ITS ---
Subjective Subjective Date of Service: 03/02/25 Reason For Visit: Major Depressive Disorder Interim History: Patient seen with photonics engineering technologist. She reports she is feeling OK. Was disappointed when she found out it is a long weekend and that she will probably have to wait till Tuesday to leave. Toleratign medications well. No side effects. Denies SI. Review of Systems Review of Systems Denies Yes all other systems are reviewed and are negative Constitutional: Denies fever(s) Cardiovascular: Denies chest pain Gastrointestinal: Denies abdominal pain Mental Status Exam Mental Status Exam Narrative: Appearance: Casually dressed, adequate hygiene Behavior: Calm and cooperative throughout the interview. Eye contact is appropriate, and there are no signs of psychomotor agitation or retardation Speech: Normal volume and prosody Thought process: Logical and goal-directed Thought content: Future oriented no self-harming thoughts Mood: Euthymic Affect: Constricted SI:denies HI:denies VH/AH:none Delusions: None Insight/judgment: Fair insight and judgment Memory/cog: Alert, oriented x 4. grossly intact to conversational testing Patient Appearance: Appropriate Patient Orientation: Person, Place, Time and Situation Level of Consciousness: Alert Patient Behavior: Guarded, Talkative and Crying Mood Description: Depressed Affect Description: Flat Patient Cognition Impaired: No Ability to Follow Directions: Good Speech Pattern: Spontaneous Speech Memory Description: Intact Diagnostics Vital Signs (24Hr): Vital Signs - 24 hr 03/01/25 20:00 03/02/25 08:00 Temperature 98.0 F 98.7 F Pulse Rate 71 60 Respiratory Rate 18 Blood Pressure 137/74 99/54 L Pulse Oximetry 99 98 Oxygen Delivery Method Room Air Room Air BMI result Body Mass Index 19.3 Labs 02/28/25 08:27 Labs: Laboratory Results - last 48 hr 02/28/25 08:27 Estimat Average Glucose 100 Hemoglobin A1c % 5.1 TSH 1.03 Free T4 1.12 Medications Medications Current Medications Acetaminophen (Acetaminophen 325 Mg Tablet) 650 mg PO Q6H PRN PRN Reason: Headache/Pain, Scale 1-10 Last Admin: 02/27/25 14:21 Dose: 650 mg Al Hydroxide/Mg Hydroxide (Magnesium Hydrox/Alum Hydrox 30 Ml Oral.Susp) 30 ml PO Q6H PRN PRN Reason: Heartburn/Nausea Hydroxyzine HCl (Hydroxyzine Hcl 25 Mg Tablet) 25 mg PO Q6H PRN PRN Reason: mild anxiety Magnesium Hydroxide (Milk Of Magnesia 30 Ml Oral.Susp) 30 ml PO DAILY PRN PRN Reason: Constipation Melatonin (Melatonin 3 Mg Tablet) 3 mg PO BEDTIME KIM Last Admin: 03/01/25 21:31 Dose: 3 mg Nicotine (Nicotine 21 Mg Patch.Td24) 21 mg TRANSDERMA DAILY PRN PRN Reason: nicotine craving Nicotine Polacrilex (Nicotine Polacrilex 2 Mg Gum) 2 mg BUCCAL Q2H PRN PRN Reason: Nicotine Cravings Sertraline HCl (Sertraline Hcl 50 Mg Tablet) 50 mg PO BEDTIME KIM Trazodone HCl (Trazodone Hcl 25 Mg Halftab) 25 mg PO BEDTIME MRX1 PRN PRN Reason: Insomnia Allergies Allergies Allergy/AdvReac Type Severity Reaction Status Date / Time No Known Allergies Allergy Verified 02/26/25 20:33 Assessment & Plan Assessment & Plan (1) Depression: Status: Acute Code(s): F32.A - Depression, unspecified (2) Suicide ideation: Status: Acute Code(s): R45.851 - Suicidal ideations Plan 24-year-old Indian speaking female with history of depression, presents to [facility] behavioral health from [facility], via ambulance, on 02/05/2025 for suicide attempt by overdosing on Tylenol 500 mg, 10-12 tablets. On interview with the patient, she reports multiple stressors, including missing her 2-year-old daughter who is currently living with the patient's mother in [place], missing her parents who reside in [place], and not having friends, family, or social support. She also reports associated headaches, sleep disturbance and sadness. Her symptoms have been ongoing for few months. However, she experienced racing thoughts a few days before she overdosed on the medications. Also, She recently had a verbal altercation with her , which increased her stress. She notes that she often feels lonely when her leaves her home to have fun with his friends. [place]. After she gave to her child, she found life challenging without social support. Her life became very stressful and she was very depressed. Therefore, a year ago, she sent her daughter to the patient's mother in [place]. She felt better after sending her child away. 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 For the past few months, she has been missing her daughter and parents. She thought about going to [place] to join her baby and parents before she brings the [place] However, due to the current political status of the [facility], she is worried that she may be denied reentry, although she has a document as a legal permanent residence. She has not thought about her , a [facility] citizen, going to [place] to bring their daughter [place] because she thinks about spending time with her family before she brings her child back. She was on an antidepressant, antepartum, a year and a half ago for a few months. She stopped taking the medication after she fell better. She currently denies anxiety or depression. She denies SI/HI/AH/VH. She denies rupert or hypomania episodes. She denies nicotine, alcohol, or illicit drug use. Formulation/Clinical reasoning: Depression: Likely chronic/episodic due to significant stressors. She was started on sertraline 50 mg daily. She notes that she slept better last night and feels comfortable. She feels alone in the room and wants to go home. She currently denies anxiety, depression, SI/HI/AH/VH. She misses her daughter and wants her to spend more time with her. Continue current treatment regimen. Encouraged to engage in groups. Verbalized understanding and agreed with the plan. According to nursing, patient's is visiting today. 02/28: Continue current treatment regimen. 03/01: Change timing of Sertraline to HS Continue to monitor 03/02: Continue current management and treatment plan. Plan Admit to M5. CV 15 minutes check. Diagnostics as needed. Collateral contact. Continue remainder of regime. Encouraged full milieu. Discharge planning. Reason for continued inpatient stay Substantial Risk for: harm to self, inability to function and rapid decompensation Time Spent With Patient Time: Total time managing care of this patient today ____ minutes.
[2025-03-02 20:00] VITALS: BP 98/54; PULSE 72; TEMP 36.4; O2SAT 100
[2025-03-03 08:00] VITALS: BP 109/61; PULSE 61; RESP 18; TEMP 36.9; O2SAT 99
--- NOTE | 2025-03-03 08:35 | P.PNPSI_ITS ---
Subjective Subjective Date of Service: 03/03/25 Reason For Visit: Major Depressive Disorder Interim History: Patient seen. Isolates to her room due to language barrier. Anxiety and depression improved. No complaints today. Slept well. Keeping busy with art projects and plans to attend art group later. Had a visit with and father and went well. She reports she is feeling OK. Tolerating medications well. No side effects. Denies SI. Review of Systems Review of Systems Denies Yes all other systems are reviewed and are negative Constitutional: Denies fever(s) Cardiovascular: Denies chest pain Gastrointestinal: Denies abdominal pain Mental Status Exam Mental Status Exam Narrative: Appearance: Casually dressed, adequate hygiene Behavior: Calm and cooperative throughout the interview. Eye contact is appropriate, and there are no signs of psychomotor agitation or retardation Speech: Normal volume and prosody Thought process: Logical and goal-directed Thought content: Future oriented no self-harming thoughts Mood: Euthymic Affect: Constricted SI:denies HI:denies VH/AH:none Delusions: None Insight/judgment: Fair insight and judgment Memory/cog: Alert, oriented x 4. grossly intact to conversational testing Patient Appearance: Appropriate Patient Orientation: Person, Place, Time and Situation Level of Consciousness: Alert Patient Behavior: Guarded, Talkative and Crying Mood Description: Depressed Affect Description: Flat Patient Cognition Impaired: No Ability to Follow Directions: Good Speech Pattern: Spontaneous Speech Memory Description: Intact Diagnostics Vital Signs (24Hr): Vital Signs - 24 hr 03/02/25 20:00 03/03/25 08:00 Temperature 97.6 F 98.4 F Pulse Rate 72 61 Respiratory Rate 18 Blood Pressure 98/54 L 109/61 Pulse Oximetry 100 99 Oxygen Delivery Method Room Air Room Air BMI result Body Mass Index 19.3 Labs 02/28/25 08:27 Medications Medications Current Medications Acetaminophen (Acetaminophen 325 Mg Tablet) 650 mg PO Q6H PRN PRN Reason: Headache/Pain, Scale 1-10 Last Admin: 02/27/25 14:21 Dose: 650 mg Al Hydroxide/Mg Hydroxide (Magnesium Hydrox/Alum Hydrox 30 Ml Oral.Susp) 30 ml PO Q6H PRN PRN Reason: Heartburn/Nausea Hydroxyzine HCl (Hydroxyzine Hcl 25 Mg Tablet) 25 mg PO Q6H PRN PRN Reason: mild anxiety Magnesium Hydroxide (Milk Of Magnesia 30 Ml Oral.Susp) 30 ml PO DAILY PRN PRN Reason: Constipation Melatonin (Melatonin 3 Mg Tablet) 3 mg PO BEDTIME KIM Last Admin: 03/02/25 21:48 Dose: 3 mg Nicotine (Nicotine 21 Mg Patch.Td24) 21 mg TRANSDERMA DAILY PRN PRN Reason: nicotine craving Nicotine Polacrilex (Nicotine Polacrilex 2 Mg Gum) 2 mg BUCCAL Q2H PRN PRN Reason: Nicotine Cravings Sertraline HCl (Sertraline Hcl 50 Mg Tablet) 50 mg PO BEDTIME KIM Last Admin: 03/02/25 21:52 Dose: 50 mg Trazodone HCl (Trazodone Hcl 25 Mg Halftab) 25 mg PO BEDTIME MRX1 PRN PRN Reason: Insomnia Allergies Allergies Allergy/AdvReac Type Severity Reaction Status Date / Time No Known Allergies Allergy Verified 02/26/25 20:33 Assessment & Plan Assessment & Plan (1) Depression: Status: Acute Code(s): F32.A - Depression, unspecified (2) Suicide ideation: Status: Acute Code(s): R45.851 - Suicidal ideations Plan 24-year-old Yoruba speaking female with history of depression, presents to [facility] behavioral health from [facility], via ambulance, on 02/05/2025 for suicide attempt by overdosing on Tylenol 500 mg, 10-12 tablets. On interview with the patient, she reports multiple stressors, including missing her 2-year-old daughter who is currently living with the patient's mother in [place], missing her parents who reside in [place], and not having friends, family, or social support. She also reports associated headaches, sleep disturbance and sadness. Her symptoms have been ongoing for few months. However, she experienced racing thoughts a few days before she overdosed on the medications. Also, She recently had a verbal altercation with her , which increased her stress. She notes that she often feels lonely when her leaves her home to have fun with his friends. [place]. After she gave to her child, she found life challenging without social support. Her life became very stressful and she was very depressed. Therefore, a year ago, she sent her daughter to the patient's mother in [place]. She felt better after sending her child away. 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 For the past few months, she has been missing her daughter and parents. She thought about going to [place] to join her baby and parents before she brings the [place] to [place] However, due to the current political status of the [place], she is worried that she may be denied reentry, although she has a document as a legal permanent residence. She has not thought about her , a [facility] citizen, going to [place] to bring their daughter to [place] because she thinks about spending time with her family before she brings her child back. She was on an antidepressant, antepartum, a year and a half ago for a few months. She stopped taking the medication after she fell better. She currently denies anxiety or depression. She denies SI/HI/AH/VH. She denies rupert or hypomania episodes. She denies nicotine, alcohol, or illicit drug use. Formulation/Clinical reasoning: Depression: Likely chronic/episodic due to significant stressors. She was started on sertraline 50 mg daily. She notes that she slept better last night and feels comfortable. She feels alone in the room and wants to go home. She currently denies anxiety, depression, SI/HI/AH/VH. She misses her daughter and wants her to spend more time with her. Continue current treatment regimen. Encouraged to engage in groups. Verbalized understanding and agreed with the plan. According to nursing, patient's is visiting today. 02/28: Continue current treatment regimen. 03/01: Change timing of Sertraline to HS Continue to monitor 03/02: Continue current management and treatment plan. 03/03: continue current management and treatment plan. Plan Admit to M5. CV 15 minutes check. Diagnostics as needed. Collateral contact. Continue remainder of regime. Encouraged full milieu. Discharge planning. Reason for continued inpatient stay Substantial Risk for: harm to self and rapid decompensation Time Spent With Patient Time: Total time managing care of this patient today ____ minutes.
[2025-03-03 20:00] VITALS: BP 105/62; PULSE 78; RESP 20; TEMP 36.4; O2SAT 100
[2025-03-04 08:00] VITALS: BP 111/60; PULSE 56; RESP 18; TEMP 36.8; O2SAT 99
--- NOTE | 2025-03-04 09:44 | P.PNPSI_ITS ---
Subjective Subjective Date of Service: 03/04/25 Reason For Visit: Major Depressive Disorder Interim History: Patient seen with the lithographic photographer apprentice. She reports mood, anxiety, sleep and appetite under control. Denies SI. Eager to leave. When asked about her reflections on what she could do so she doesn't feel as depressed, patient said she is planning on going to [employer] in April because she misses her child and family. Hopeful, future oriented. She is tolerating medications well. Isolates to her room due to language barrier. Anxiety and depression improved. Keeping busy with art projects and went to art. will be visiting she said. Review of Systems Review of Systems Denies Yes all other systems are reviewed and are negative Constitutional: Denies fever(s) Cardiovascular: Denies chest pain Gastrointestinal: Denies abdominal pain Mental Status Exam Mental Status Exam Narrative: Appearance: Casually dressed, adequate hygiene Behavior: Calm and cooperative throughout the interview. Eye contact is appropriate, and there are no signs of psychomotor agitation or retardation Speech: Normal volume and prosody Thought process: Logical and goal-directed Thought content: Future oriented no self-harming thoughts Mood: Euthymic Affect: Constricted SI:denies HI:denies VH/AH:none Delusions: None Insight/judgment: Fair insight and judgment Memory/cog: Alert, oriented x 4. grossly intact to conversational testing Patient Appearance: Appropriate Patient Orientation: Person, Place, Time and Situation Level of Consciousness: Alert Patient Behavior: Guarded, Talkative and Crying Mood Description: Depressed Affect Description: Flat Patient Cognition Impaired: No Ability to Follow Directions: Good Speech Pattern: Spontaneous Speech Memory Description: Intact Diagnostics Vital Signs (24Hr): Vital Signs - 24 hr 03/03/25 20:00 03/04/25 08:00 Temperature 97.5 F 98.2 F Pulse Rate 78 56 Respiratory Rate 20 18 Blood Pressure 105/62 111/60 Pulse Oximetry 100 99 Oxygen Delivery Method Room Air Room Air BMI result Body Mass Index 19.3 Labs 02/28/25 08:27 Medications Medications Current Medications Acetaminophen (Acetaminophen 325 Mg Tablet) 650 mg PO Q6H PRN PRN Reason: Headache/Pain, Scale 1-10 Last Admin: 02/27/25 14:21 Dose: 650 mg Al Hydroxide/Mg Hydroxide (Magnesium Hydrox/Alum Hydrox 30 Ml Oral.Susp) 30 ml PO Q6H PRN PRN Reason: Heartburn/Nausea Hydroxyzine HCl (Hydroxyzine Hcl 25 Mg Tablet) 25 mg PO Q6H PRN PRN Reason: mild anxiety Magnesium Hydroxide (Milk Of Magnesia 30 Ml Oral.Susp) 30 ml PO DAILY PRN PRN Reason: Constipation Melatonin (Melatonin 3 Mg Tablet) 3 mg PO BEDTIME KIM Last Admin: 03/03/25 21:37 Dose: 3 mg Nicotine (Nicotine 21 Mg Patch.Td24) 21 mg TRANSDERMA DAILY PRN PRN Reason: nicotine craving Nicotine Polacrilex (Nicotine Polacrilex 2 Mg Gum) 2 mg BUCCAL Q2H PRN PRN Reason: Nicotine Cravings Sertraline HCl (Sertraline Hcl 50 Mg Tablet) 50 mg PO BEDTIME KIM Last Admin: 03/03/25 21:37 Dose: 50 mg Trazodone HCl (Trazodone Hcl 25 Mg Halftab) 25 mg PO BEDTIME MRX1 PRN PRN Reason: Insomnia Allergies Allergies Allergy/AdvReac Type Severity Reaction Status Date / Time No Known Allergies Allergy Verified 02/26/25 20:33 Assessment & Plan Assessment & Plan (1) Depression: Status: Acute Code(s): F32.A - Depression, unspecified (2) Suicide ideation: Status: Acute Code(s): R45.851 - Suicidal ideations Plan 24-year-old Dominican speaking female with history of depression, [place] [facility] [place] [facility] [place] [facility], via ambulance, on 02/05/2025 for suicide attempt by overdosing on Tylenol 500 mg, 10-12 tablets. On interview with the patient, she reports multiple stressors, including missing her 2-year-old daughter who is currently living with the patient's mother in [place], missing her parents who reside in [place], and not having friends, family, or social support. She also reports associated headaches, sleep disturbance and sadness. Her symptoms have been ongoing for few months. However, she experienced racing thoughts a few days before she overdosed on the medications. Also, She recently had a verbal altercation with her , which increased her stress. She notes that she often feels lonely when her leaves her home to have fun with his friends. [place]. After she gave to her child, she found life challenging without social support. Her life became very stressful and she was very depressed. Therefore, a year ago, she sent her daughter to the patient's mother in [place]. She felt better after sending her child away. 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 For the past few months, she has been missing her daughter and parents. She thought about going to [place] to join her baby and parents before she brings the child back to [place]. However, due to the current political status of the [facility], she is worried that she may be denied reentry, although she has a document as a legal permanent residence. She has not thought about her , a [facility] citizen, going to [place] to bring their daughter to [place] because she thinks about spending time with her family before she brings her child back. She was on an antidepressant, antepartum, a year and a half ago for a few months. She stopped taking the medication after she fell better. She currently denies anxiety or depression. She denies SI/HI/AH/VH. She denies rupert or hypomania episodes. She denies nicotine, alcohol, or illicit drug use. Formulation/Clinical reasoning: Depression: Likely chronic/episodic due to significant stressors. She was started on sertraline 50 mg daily. She notes that she slept better last night and feels comfortable. She feels alone in the room and wants to go home. She currently denies anxiety, depression, SI/HI/AH/VH. She misses her daughter and wants her to spend more time with her. Continue current treatment regimen. Encouraged to engage in groups. Verbalized understanding and agreed with the plan. According to nursing, patient's is visiting today. 02/28: Continue current treatment regimen. 03/01: Change timing of Sertraline to HS Continue to monitor 03/02: Continue current management and treatment plan. 03/03: continue current management and treatment plan. 03/04: continue current management and treatment plan. Plan Admit to [facility]. CV 15 minutes check. Diagnostics as needed. Collateral contact. Continue remainder of regime. Encouraged full milieu. Discharge planning. Reason for continued inpatient stay Substantial Risk for: harm to self, inability to function and rapid decompensation Time Spent With Patient Time: Total time managing care of this patient today ____ minutes.
[2025-03-04 20:55] VITALS: BP 109/58; PULSE 67; RESP 16; TEMP 36.9; O2SAT 99
[2025-03-05 08:00] VITALS: BP 106/50; PULSE 60; TEMP 36.4; O2SAT 100
--- NOTE | 2025-03-05 16:24 | P.DS_ITS ---
DS: Providers Provider Date of admission: 02/26/25 19:28 Primary care physician: Unknown Physician Consults: 02/26/25 20:33 Consult to Hospitalist Routine Comment: Consulting Provider: [facility] [place] Hospitalists Reason For Exam: New external admit- H&P DS: Diagnosis Discharge Diagnosis (1) Depression: Status: Acute (2) Suicide ideation: Status: Acute DS: Medications Discharge Medications Home Medications: Previous Rx's ?Medication ?Instructions ?Recorded melatonin 3 mg tablet 3 mg PO BEDTIME #30 tabs 08/28 sertraline 50 mg tablet 50 mg PO BEDTIME #30 tabs Data Data Completed and Pending Completed studies during hospitalization [Text1]: 02/28/25 08:27 Sodium 140 Potassium 3.8 Chloride 103 Carbon Dioxide 31 H Anion Gap 10 L BUN 15 Creatinine 0.75 Estim Creat Clear Calc 69.2 Estimated GFR > 60 Random Glucose 87 Estimat Average Glucose 100 Hemoglobin A1c % 5.1 Calcium 8.9 Total Bilirubin 1.1 H AST 27 ALT 16 Alkaline Phosphatase 30 L Total Protein 7.0 Albumin 4.5 Triglycerides 69 Cholesterol 162 LDL Cholesterol, Calc 98 HDL Cholesterol 51 TSH 1.03 Free T4 1.12 DS: Summary Time Spent with Patient Time attestation: Total time managing care of this patient today ____ minutes. Discharge Plan Discharge Anticipated Discharge Date/Time: 03/05/25 09:38 Patient Disposition: Home, Self-Care Discharge Diagnosis: Depression Referrals: Markie Gaines [facility] [employer] [Other] - 03/13/25 7:30 pm Referral Note: *In-office appointment with your medication provider Therapy Intake [facility]point[facility] [Other] - 03/08/25 10:00 am Referral Note: *With therapist, Markie Gaines. FX [phone] Physician,Unknown J [Primary Care Provider, Medical] - 1 Week Discharge Medications: New melatonin 3 mg Tablet 3 mg PO BEDTIME Qty: 30 0RF sertraline 50 mg Tablet 50 mg PO BEDTIME Qty: 30 0RF Discharge Orders: Discharge Order (Routine); Ordered 03/05/25 Ordered By: Trini Pride Diet: Advance to usual diet Activity on Discharge: As tolerated Stand Alone Forms: Patient Portal Discharge page, Community Support Print Language: Slovenian Care Plan Goals: Mood and Behavioral Stabilization Health Concerns: Mood and Behavioral Stabilization Plan of Treatment: Attend scheduled appointments Take medications as directed plans a leave of absence from work to support pt in her recovery reports pt will return to family in April for added support. Assessment: Denies SI,HI,AH,VH. No sx of overt psychosis or rupert Discharge on a three day notice of intent Discharge Date/Time: 03/05/25 11:33
== END 2025-03-05 11:33 | disposition home or self-care (01) | DRG 754 ==
PROVIDERS: Nurse Practitioner Psychiatric/Mental Health; Admitting Provider Psychiatry & Neurology Psychiatry; Visit Provider Clinical Nurse Specialist Psychiatric/Mental Health, Adult
DX: F32.A Depression, unspecified (principal); R45.851 Suicidal ideations; Z91.51 Personal history of suicidal behavior
CPT/HCPCS: 36415; 80053; 80061; 83036; 84439; 84443

== ENCOUNTER → 2025-02-26 19:28 | Outpatient (BNV) | payer MEDICAID, SELFPAY | PROVIDERS: Admitting Provider Psychiatry & Neurology Psychiatry; Visit Provider Physician Assistant Medical | DX: Z02.2 Encounter for examination for admission to residential institution (principal) | CPT/HCPCS: 99429 ==

== ENCOUNTER → 2025-02-26 19:28 | Outpatient (BNV) | payer MEDICAID, SELFPAY | PROVIDERS: Admitting Provider Psychiatry & Neurology Psychiatry; Visit Provider Nurse Practitioner Family | DX: F32.2 Major depressive disorder, single episode, severe without psychotic features (principal); R45.851 Suicidal ideations | CPT/HCPCS: 90792; 99231; 99232 ==